=== PATIENT | female | born 1935 | race Caucasian/White ===

== ENCOUNTER 2019-08-15 14:29 | Inpatient (IN) ==
[2019-08-15] MEDS ORDERED: SODIUM CHLORIDE 0.9% 1000ML 1,000 ML IV ONE (15:21)
--- NOTE | 2019-08-15 15:44 | XRay Report ---
XR chest 1V portable HISTORY: 83 years-old Female Chest Pain acute atypical chest pain COMPARISON: Chest radiograph 09/14/2016 TECHNIQUE: Portable AP view of the chest FINDINGS: Cardiac mediastinal and hilar silhouettes are within normal limits. Hiatal hernia. Calcified plaque o f the thoracic aortic arch. No pneumothorax, pleural effusion, focal airspace consolidation or overt pulmonary edema. Subtle subsegmental right basilar atelectasis/scarring. Mild hyperinflation. Calcifi ed granuloma of the right lung apex, unchanged. Degenerative changes of the shoulders and spine. IMPRESSION: No acute process. The above report was generated using voice recognition software. It may contain grammatical, syntax o r spelling errors. Electronically signed by: Juan Chavez M.D. 08/15/2019 3:43 PM
[2019-08-15 16:07] LABS: Basophils # (auto) 0.08 K/uL (0-0.2); Basophils % (auto) 1.1 %; Eosinophils # (auto) 0.09 K/uL (0-0.5); Eosinophils % (auto) 1.2 %; Hematocrit (blood only) 40.7 % (37-47); Immature Granulocytes # (auto) 0.03 K/uL (0.00-0.02); Immature Granulocytes % (auto) 0.4 %; Lymphocytes % (auto) 17.7 %; Mean Corpuscular Hemoglobin 30.7 pg (25-34); Mean Corpuscular Hgb Conc 34.4 g/dL (32-36); Mean Corpuscular Volume 89.3 fL (80-100); Mean Platelet Volume 9.7 fL (7.4-10.4); Monocytes # (auto) 0.72 K/uL (0.11-0.59); Monocytes % (auto) 9.8 %; Neutrophils # (auto) 5.11 K/uL (1.4-6.5); Neutrophils % (auto) 69.8 %; Platelet Count 314 K/uL (130-400); RDW Coefficient of Variation 14.6 % (11.5-14.5); RDW Standard Deviation 47.7 fL (36.4-46.3); Red Blood Count 4.56 M/uL (4.2-5.4); White Blood Count 7.33 K/uL (4.8-10.8)
[2019-08-15 16:25] LABS: Alanine Aminotransferase 17 U/L (12-78); Albumin Level 3.7 gm/dl (3.4-5.0); Aspartate Aminotransferase 19 U/L (15-37); BUN Creatinine Ratio 28.3 (10-20); Blood Urea Nitrogen 68 mg/dl (7-18); Calcium 9.4 mg/dl (8.5-10.1); Carbon Dioxide 20 mmol/L (21-32); Chloride 100 mmol/L (98-107); Creatinine Clr Calc Pharmacy 16.7 ml/min; Est GFR (African American) 20.9; Glucose 102 mg/dl (70-99); Lipase 208 U/L (73-393); Magnesium 2.5 mg/dl (1.8-2.4); Sodium 131 mmol/L (136-145)
--- NOTE | 2019-08-15 16:33 | CT Scan Report ---
CT head/brain wo con CLINICAL HISTORY: 83 years-old Female presenting with confusion, weakness. TECHNIQUE: Multidetector CT imaging of the head was performed without the use of intravenous contrast . IV contrast: None. One or more dose lowering techniques were used consistent with the principles of ALARA (as low as reasonably achievable), including automatic exposure control, mA or kV adjustment t o individual patient size, and/or use of iterative reconstruction. COMPARISON: None. CT DOSE (mGy.cm): The estimated cumulative dose is 537.48 mGy.cm. 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 Proportional ventricular and sulcal prominence, likely age-related parenchymal volume loss. No hemorr jennifer. Periventricular and subcortical white matter hypoattenuation, nonspecific but likely indicative of chronic small vessel ischemic change. No acute territorial infarct. No mass effect or midline sly ft. No extra-axial fluid collection. Paranasal sinuses and mastoid air cells clear. Calvarium intact. IMPRESSION: 1. Chronic small vessel ischemic change. No acute intracranial abnormality. Electronically signed by: Robbin Fregoso M.D. 08/15/2019 4:32 PM
[2019-08-15 16:36] LABS: Albumin Globulin Ratio 0.8 (0.9-2); Alkaline Phosphatase 61 U/L (45-117); Bilirubin,Total 0.3 mg/dl (0.2-1); Globulin 4.8 gm/dl (2.5-4.0); Phosphorus 4.3 mg/dl (2.5-4.9); Total Protein 8.5 gm/dl (6.4-8.2); Troponin I < 0.015 ng/ml (0-0.045)
[2019-08-15 16:53] LABS: Appearance Urine Cloudy (Clear); Bacteria Urine Automated Negative (Negative); Bilirubin Urine Negative (Negative); Blood Urine Negative (Negative); Color Urine Yellow; Epithelial Cell Urine Auto 20-30 /lpf (0-5); Glucose Urine UA Negative (Negative); Ketones Urine Trace (Negative); Leukocyte Esterase Urine 3+ (Negative); Nitrite Urine Negative (Negative); Protein Urine Negative (Negative); RBC Urine Automated 0-4 /hpf (0-4); Specific Gravity Urine 1.021 (1.000-1.030); Urobilinogen Urine Negative (Negative); WBC Urine Automated >30 /hpf (0-5)
[2019-08-15] MEDS ORDERED: cefTRIAXone SODIUM 2,000 MG/70 ML BAG IV STA (17:28)
[2019-08-15] MEDS ORDERED: SODIUM CHLORIDE 0.9% 500 ML IV STA (17:50)
--- NOTE | 2019-08-15 18:41 | Emergency Department Note ---
Entered by Anjelica Kirkpatrick acting as a scribe for History of Present Illness General Chief complaint: Weakness Stated complaint: weakness Time Seen by Provider: 08/15/19 14:57 Source: patient and other (nursing staff) History of Present Illness Onset (ago): day(s) 10 Location: upper extremity and lower extremity Pain Consistency: + other (worsening) Quality: + other (weakness) Associated symptoms: + denies other symptoms (Pt denies any complaints) and + confusion The patient is an 83 year old female who presents to the Emergency Room with complaints of worsening weakness starting 10 days ago. Per nursing staff, the patient was diagnosed at [facility] with a UTI and started on Bactrim. They state that after 4 days she was taken off of it since she was having hallucinations. They report that according to what the daughter told EMS, the patient was not started on a new antibiotic. They note that since then the patient is reported to have increased confusion and weakness. They note that according to her family when EMS arrived, she is normally able to care for herself as she lives alone. They state that she is normally alert and oriented x4. The patient denies having any complaints. Home Medications Home Medications Medication Instructions Recorded Confirmed Type albuterol sulfate 2.5 mg INHALATION Q4 PRN 08/15/19 08/15/19 History aspirin [Aspir-81] 81 mg PO DAILY 08/15/19 08/15/19 History cholecalciferol (vitamin D3) 1,000 unit PO DAILY 08/15/19 08/15/19 History [Vitamin D3] cyanocobalamin (vitamin B-12) 1,000 mcg PO DAILY 08/15/19 08/15/19 History [Vitamin B-12] fluoxetine [Prozac] 20 mg PO DAILY 08/15/19 08/15/19 History folic acid 1 mg PO DAILY 08/15/19 08/15/19 History gabapentin [Neurontin] 600 mg PO QID 08/15/19 08/15/19 History hydrocortisone 1 applic TOPICAL TID PRN 08/15/19 08/15/19 History lansoprazole [Prevacid] 30 mg PO DAILY 08/15/19 08/15/19 History latanoprost [Xalatan] 1 drp OPHTHALMIC (EYE) HS 08/15/19 08/15/19 History losartan [Cozaar] 100 mg PO DAILY 08/15/19 08/15/19 History metoprolol succinate [Toprol XL] 50 mg PO DAILY 08/15/19 08/15/19 History nitroglycerin [Nitrostat] 0.4 mg SUBLINGUAL UD PRN 08/15/19 08/15/19 History oxycodone-acetaminophen [Percocet] 1 tab PO .Q6-8 HRS PRN 08/15/19 08/15/19 History peg 400-propylene glycol (PF) 1 drp OPHTHALMIC (EYE) BID PRN 08/15/19 08/15/19 History [Systane (PF)] Allergies Allergy/AdvReac Type Severity Reaction Status Date / Time chlorpromazine Allergy Unknown "OPPOSITE Unverified 08/15/19 15:35 EFFECT OF WHAT IT WAS SUPPOSED TO DO" morphine Allergy Unknown unknown Unverified 08/15/19 15:35 sulfamethoxazole AdvReac Severe Hallucinati Verified 08/15/19 17:28 [From Bactrim] ng trimethoprim [From Bactrim] AdvReac Severe Hallucinati Verified 08/15/19 17:28 ng atenolol AdvReac Intermediate Nausea Verified 08/15/19 15:40 citalopram AdvReac Intermediate NAUSEA,SARAH, Verified 08/15/19 15:40 AGITATION diclofenac AdvReac Intermediate Nausea Verified 08/15/19 15:40 simvastatin AdvReac Intermediate Muscle Pain Verified 08/15/19 15:40 pantoprazole AdvReac Diarrhea Verified 08/15/19 15:40 Past Med/Surg History Medical History Chronic back pain CKD (chronic kidney disease), stage III (Chronic) Coronary artery disease (Chronic) Depression (Chronic) Dyslipidemia (Chronic) GERD (gastroesophageal reflux disease) (Chronic) History of malignant melanoma (Chronic) HTN (hypertension) (Chronic) IBS (irritable bowel syndrome) (Chronic) Ischemic cardiomyopathy (Chronic) Osteoporosis (Chronic) Surgical History History of hysterectomy (Chronic) History of spinal fusion (Chronic) S/P bilateral oophorectomy (Chronic) S/P lumbar laminectomy (Chronic) Status post coronary artery stent placement (Chronic) Status post dilation of esophageal narrowing (Chronic) Family History Mother Diabetes Hypertension Social History Preferred Language: Maltese Communication Ability: Effective 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 and A total of 10 systems reviewed and were otherwise negative Physical Exam Vital Signs Vital Signs - 24 hr 08/15/19 14:34 08/15/19 14:37 08/15/19 14:41 Temperature 36.5 C Temperature Source Oral Pulse Rate 83 85 83 Pulse Rate [Finger] Pulse Rate from SpO2 Sensor 82 83 Respiratory Rate 14 15 14 Blood Pressure 131/76 131/76 Blood Pressure [Right Arm] Blood Pressure Mean 87 94 Blood Pressure Mean [Right Arm] Pulse Oximetry 93 94 93 Oxygen Delivery Method Room Air Sepsis Recent Fever Within 48 Hours No Sepsis Action Taken by Nursing No Action Required 08/15/19 15:00 08/15/19 15:30 08/15/19 15:56 Temperature Temperature Source Pulse Rate 83 82 79 Pulse Rate [Finger] 81 Pulse Rate from SpO2 Sensor 84 82 79 Respiratory Rate 15 13 18 Blood Pressure 138/76 Blood Pressure [Right Arm] 138/76 Blood Pressure Mean 97 Blood Pressure Mean [Right Arm] 96 Pulse Oximetry 93 92 93 Oxygen Delivery Method Room Air Sepsis Recent Fever Within 48 Hours Sepsis Action Taken by Nursing 08/15/19 16:00 08/15/19 16:39 08/15/19 16:40 Temperature Temperature Source Pulse Rate 76 85 75 Pulse Rate [Finger] Pulse Rate from SpO2 Sensor 76 Respiratory Rate 21 20 15 Blood Pressure 139/76 158/79 H Blood Pressure [Right Arm] Blood Pressure Mean 89 117 Blood Pressure Mean [Right Arm] Pulse Oximetry 94 Oxygen Delivery Method Sepsis Recent Fever Within 48 Hours Sepsis Action Taken by Nursing 08/15/19 16:41 08/15/19 17:00 08/15/19 17:30 Temperature Temperature Source Pulse Rate 86 78 79 Pulse Rate [Finger] Pulse Rate from SpO2 Sensor Respiratory Rate 17 20 13 Blood Pressure 137/63 128/68 Blood Pressure [Right Arm] Blood Pressure Mean 76 89 Blood Pressure Mean [Right Arm] Pulse Oximetry Oxygen Delivery Method Sepsis Recent Fever Within 48 Hours Sepsis Action Taken by Nursing 08/15/19 18:00 Temperature Temperature Source Pulse Rate 81 Pulse Rate [Finger] Pulse Rate from SpO2 Sensor Respiratory Rate 19 Blood Pressure 156/76 H Blood Pressure [Right Arm] Blood Pressure Mean 104 Blood Pressure Mean [Right Arm] Pulse Oximetry Oxygen Delivery Method Sepsis Recent Fever Within 48 Hours Sepsis Action Taken by Nursing GENERAL: Awake, alert, pleasantly confused, in no distress HENT: Normocephalic, atraumatic. Oropharynx with dry mucous membranes and otherwise unremarkable. EYES: Normal conjunctiva. Sclera non-icteric. NECK: Supple. No nuchal rigidity. FROM. No JVD. RESPIRATORY: Clear to auscultation bilaterally. CARDIAC: Regular rate, normal rhythm. Extremities warm and well perfused. Pulses equal. ABDOMEN: Soft, non-distended. No tenderness to palpation. No rebound or guarding. No masses. RECTAL: Deferred. MUSCULOSKELETAL: Chest examination reveals no tenderness. The back is symmetrical on inspection without obvious abnormality. There is no CVA tenderness to palpation. No joint edema. LOWER EXTREMITIES: Calves are equal size bilaterally and non-tender. No edema. No discoloration. NEURO: Pleasantly confused. No sensory or motor deficits noted. 5/5 strength and SILT x4 extremities. SKIN: No rash or jaundice noted. Course Course 151: The patient was evaluated in room B11B. A complete history and physical exam was performed. 1720: I reevaluated the patient and she is feeling better. I discussed the patient's test results and the treatment plan with her and her family. They verbally agree and understand. 1728: I discussed the patient's case with MONO Lerma- [facility]. She will evaluate the patient for further management. Administered Medications Gabapentin (Neurontin) 600 mg PO QID [facility] Stop: 09/14/19 20:59 Last Admin: 08/15/19 21:20 Dose: 600 mg Documented by: [id number] Heparin Sodium (Porcine) (Heparin Sodium (Porcine)) 5,000 units SQ Q8 [facility] Stop: 09/14/19 21:59 Last Admin: 08/15/19 21:19 Dose: 5,000 units Documented by: [id number] Cosigned by: [id number] Sodium Chloride (Nss 1000ml) 1,000 mls @ 100 mls/hr IV .Q10H [facility] Stop: 09/14/19 20:00 Last Admin: 08/15/19 21:01 Dose: 100 mls/hr Documented by: [id number] Latanoprost (Xalatan Oph) 1 drops OP HS [facility] Stop: 09/14/19 20:59 Last Admin: 08/15/19 21:20 Dose: 1 drops Documented by: [id number] Oxycodone/Acetaminophen (Percocet 10/325mg) 1 tab PO .Q6-8 HRS PRN PRN Reason: Pain Stop: 08/29/19 20:00 Last Admin: 08/15/19 21:00 Dose: 1 tab Documented by: [id number] Discontinued Medications Sodium Chloride (Nss 1000ml) 1,000 mls @ 999 mls/hr IV .Q1H1M ONE Stop: 08/15/19 16:21 Last Infusion: 08/15/19 16:50 Dose: 0 mls/hr Documented by: [id number] Admin: 08/15/19 15:55 Dose: 999 mls/hr Documented by: [id number] Ceftriaxone Sodium (Rocephin) 2,000 mg in 70 mls @ 140 mls/hr IV NOW STA Stop: 08/15/19 17:57 Last Infusion: 08/15/19 18:49 Dose: 0 mls/hr Documented by: [id number] Admin: 08/15/19 18:26 Dose: 140 mls/hr Documented by: [id number] Sodium Chloride (Nss) 500 mls @ 125 mls/hr IV .Q4H STA Stop: 08/15/19 21:49 Last Admin: 08/15/19 18:43 Dose: 125 mls/hr Documented by: [id number] Medical Decision Making Differential Diagnosis Differential Diagnosis includes but is not limited to dehydration, stroke, anemia, hypoglycemia, hyponatremia, hypernatremia, urinary tract infection, pneumonia, bronchitis, sepsis, gastroenteritis, additional abdominal pathology, metabolic abnormalities and infections. Medical Records Attestation: I reviewed the patient's medical records. Home Medications Current Medication List: was personally reviewed by me Laboratory Data Attestation: I reviewed the patient's lab results. Result diagrams: 08/15/19 15:42 08/15/19 15:42 Lab Results 08/15/19 08/15/19 08/15/19 Range/Units 15:42 15:42 16:40 WBC 7.33 (4.8-10.8) K/uL RBC 4.56 (4.2-5.4) M/uL Hgb 14.0 (12.0-16.0) g/dL Hct 40.7 (37-47) % MCV 89.3 (80-100) fL MCH 30.7 (25-34) pg MCHC 34.4 (32-36) g/dL RDW Std Deviation 47.7 H (36.4-46.3) fL RDW Coeff of Erin 14.6 H (11.5-14.5) % Plt Count 314 (130-400) K/uL MPV 9.7 (7.4-10.4) fL Immature Gran % (Auto) 0.4 % Neut % (Auto) 69.8 % Lymph % (Auto) 17.7 % [place] % (Auto) 9.8 % Eos % (Auto) 1.2 % Baso % (Auto) 1.1 % Immature Gran # (Auto) 0.03 H (0.00-0.02) K/uL Neut # (Auto) 5.11 (1.4-6.5) K/uL Lymph # (Auto) 1.30 (1.2-3.4) K/uL [place] # (Auto) 0.72 H (0.11-0.59) K/uL Eos # (Auto) 0.09 (0-0.5) K/uL Baso # (Auto) 0.08 (0-0.2) K/uL Sodium 131 L (136-145) mmol/L Potassium 5.0 (3.5-5.1) mmol/L Chloride 100 (98-107) mmol/L Carbon Dioxide 20 L (21-32) mmol/L Anion Gap 11.0 (3-11) BUN 68 H (7-18) mg/dl Creatinine 2.39 H (0.6-1.2) mg/dl Est Cr Clr Drug Dosing 16.7 ml/min Est GFR ( Amer) 20.9 Est GFR (Non-Af Amer) 18.0 BUN/Creatinine Ratio 28.3 H (10-20) Glucose 102 H (70-99) mg/dl Calcium 9.4 (8.5-10.1) mg/dl Phosphorus 4.3 (2.5-4.9) mg/dl Magnesium 2.5 H (1.8-2.4) mg/dl Total Bilirubin 0.3 (0.2-1) mg/dl AST 19 (15-37) U/L ALT 17 (12-78) U/L Alkaline Phosphatase 61 (45-117) U/L Troponin I < 0.015 (0-0.045) ng/ml Total Protein 8.5 H (6.4-8.2) gm/dl Albumin 3.7 (3.4-5.0) gm/dl Globulin 4.8 H (2.5-4.0) gm/dl Albumin/Globulin Ratio 0.8 L (0.9-2) Lipase 208 (73-393) U/L TSH 6.540 H (0.300-4.500) uIu/ml Free T4 1.00 (0.8-1.6) ng/dl Urine Color Yellow Urine Appearance Cloudy A (Clear) Urine pH 5.0 (4.5-7.5) Ur Specific [place] 1.021 (1.000-1.030) Urine Protein Negative (Negative) Urine Glucose (UA) Negative (Negative) Urine Ketones Trace H (Negative) Urine Blood Negative (Negative) Urine Nitrite Negative (Negative) Urine Bilirubin Negative (Negative) Urine Urobilinogen Negative (Negative) Ur Leukocyte Esterase 3+ H (Negative) Urine WBC (Auto) >30 H (0-5) /hpf Urine RBC (Auto) 0-4 (0-4) /hpf U Hyaline Cast (Auto) 5-10 H (0-5) /lpf U Epithel Cells (Auto) 20-30 H (0-5) /lpf Urine Bacteria (Auto) Negative (Negative) Imaging Data Radiologist's Impression: Radiology results as stated below per my review and the radiologist's interpretation: XR chest 1V portable HISTORY: 83 years-old Female Chest Pain acute atypical chest pain COMPARISON: Chest radiograph 09/14/2016 TECHNIQUE: Portable AP view of the chest FINDINGS: Cardiac mediastinal and hilar silhouettes are within normal limits. Hiatal hernia. Calcified plaque of the thoracic aortic arch. No pneumothorax, pleural effusion, focal airspace consolidation or overt pulmonary edema. Subtle subsegmental right basilar atelectasis/scarring. Mild hyperinflation. Calcified granuloma of the right lung apex, unchanged. Degenerative changes of the shoulders and spine. IMPRESSION: No acute process. The above report was generated using voice recognition software. It may contain grammatical, syntax or spelling errors. Electronically signed by: Juan Chavez M.D. 08/15/2019 3:[address] head/brain wo con CLINICAL HISTORY: 83 years-old Female presenting with confusion, weakness. TECHNIQUE: Multidetector CT imaging of the head was performed without the use of intravenous contrast. IV contrast: None. One or more dose lowering techniques were used consistent with the principles of ALARA (as low as reasonably achievable), including automatic exposure control, mA or kV adjustment to individual patient size, and/or use of iterative reconstruction. COMPARISON: None. CT DOSE (mGy.cm): The estimated cumulative dose is 537.48 mGy.cm. 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 Proportional ventricular and sulcal prominence, likely age-related parenchymal volume loss. No hemorrhage. Periventricular and subcortical white matter hypoattenuation, nonspecific but likely indicative of chronic small vessel ischemic change. No acute territorial infarct. No mass effect or midline shift. No extra-axial fluid collection. Paranasal sinuses and mastoid air cells clear. Calvarium intact. IMPRESSION: 1. Chronic small vessel ischemic change. No acute intracranial abnormality. Electronically signed by: Robbin Fregoso M.D. 08/15/2019 4:32 PM ECG Data Attestation: I personally reviewed and interpreted this ECG as follows: Indication: + weakness Rate (beats per minute): 78 Rhythm: + normal sinus ECG Intervals/blocks: + Left anterior fascicular block ECG ST segments: no ST depression and no ST elevation ECG Findings: + Other (LVH, QT-c 428, QRS 98) Blood Pressure Blood Pressure Findings: Elevated blood pressure Blood Pressure Disposition: further management by hospitalist SHEREE De La Torre The patient is a pleasant 83-year-old woman with a past medical history of CKD who presents emergency department for worsening confusion and generalized weakness in setting of being diagnosed with a urinary tract infection at [place] emergency department last week per hpi. On arrival patient is mildly confused but no acute distress, afebrile stable vital signs. The patient appears cl inically dry. She is moving all extremities equally without focal neuro deficits. EKG without overt acute ischemia. Chest x-ray negative for acute process. CT head negative for acute process and otherwise shows small vessel disease. WBC, H/H, and platelets within normal limits. Bicarb 20 c/w patient's clinicaly dry appearance with creatinine elevated at 2.39 which is increased from the patient's recent baseline of 1.2-1.4 over the past year in the [facility]. LFTs unremarkable. UA again is suspicious for infection in the setting of likely incomplete treatment given the family discontinued her Bactrim several days ago. Patient feeling improved after IVF hydration. However, given t he patient's mental status changes in the setting of acute on chronic renal insufficiency and UTI reasonable to admit the patient for further management. The patient and family are agreeable with this. Case was discussed with Henok Lerma, who will evaluate the patient for admission. Impression & Plan Renal failure (ARF), acute on chronic, UTI (urinary tract infection), Change in mental status, Confusion Discharge Plan Visit Data *Final* Discharge Date/Time: 08/15/19 19:46 Chief Complaint: Weakness Stated Complaint: weakness ED Provider: Dwayne Garcia Discharge Problem: Renal failure (ARF), acute on chronic, UTI (urinary tract infection), Change in mental status, Confusion Patient Disposition: Admitted As Inpatient Discharge Instructions Interventions: ED Discharge Assessment Last Done: 08/15/19 19:46 The scribe's documentation has been prepared under my direction and personally reviewed by me in its entirety. I confirm that the note above accurately reflects all work, treatment, procedures, and medical decision making performed by me.
[2019-08-15] MEDS ORDERED: ACETAMINOPHEN 325 MG TAB PO PRN (20:01)
--- NOTE | 2019-08-15 20:11 | History & Physical Report ---
Date of Service August 15, 2019 Assessment & Plan (1) Acute kidney injury superimposed on CKD: (2) CKD (chronic kidney disease), stage III: -Admit to [facility] -Patient presenting from home with reports of left lower quadrant abdominal pain and confusion -Was evaluated at [facility] ED on 08/05, diagnosed with UTI, and placed on Bactrim; also had CT ABD/pelvis that demonstrated renal cysts and bilateral nonobstructing renal calculi -Patient began to hallucinate after starting the Bactrim and it was stopped after 2 days of therapy -Suspect ALEXEI is multifactorial secondary to Bactrim in combination with poor p.o. intake and use of losartan -Confusion has seemed to resolve while in the ED after IVF -Continue IVF -Hold losartan -Follow renal functions (3) Abdominal pain: -Patient was reporting LLQ abdominal pain -Now resolved since arriving in the ED -CT ABD/pelvis on 08/05 at [facility] negative for acute findings -Continue to monitor, consider repeat CT scan if pain returns (4) Possible urinary tract infection: -UA suggest possible UTI -Received IV ceftriaxone in the ED, will continue with -Follow urine culture -Noted urine culture from 08/05 at [facility] showed no growth (5) Ischemic cardiomyopathy: -EF 40 to 45% -Does not utilize routine diuretics at home -Monitor volume status closely -Continue beta-yuliya; holding ARB as above (6) Coronary artery disease: -Appears stable, no reports chest pain -Continue aspirin and beta-yuliya (7) HTN (hypertension): -BP controlled, continue metoprolol -Holding losartan as above (8) Chronic back pain: -Continue home medications (9) DVT prophylaxis: -SQ heparin (10) Discharge planning issues: -PT/OT, case management evaluations -Patient's POA is Nohemy Mejía, History of Present Illness . Chief Complaint: Abdominal pain, altered mental status Primary Care Provider: Corinna Worthy MD 83-year-old female who presents the ED for evaluation of abdominal pain and altered mental status. Patient was evaluated at [facility] ED on 08/05 and diagnosed with UTI. Also underwent CT ABD/pelvis that demonstrated a few small nonobstructive bilateral renal calculi. Patient was given Bactrim for suspected UTI. About 2 days after starting that medication, patient developed hallucinations. This was discussed with the pharmacist who recommended discontinuing the medication. Since that time, patient has had persistent left lower quadrant abdominal pain. She has had a very poor appetite. Patient denies nausea and vomiting. No diarrhea. She denies any urinary frequency or dysuria. No fevers or chills. She denies chest pain shortness of breath. No lightheadedness, dizziness, diaphoresis, syncopal events. Patient's POA is at the bedside who reports the patient was very confused today. EMS was called and patient was brought to the ER for further evaluation. In the ED, patient was found to have creatinine of 2.3 (baseline ~1.4), mild hyponatremia Na+ 131, other labs unremarkable. UA suggest possible UTI. Head CT and CXR are negative for acute findings. Patient was given IVF and IV ceftriaxone. Patient reports resolution of abdominal pain since arriving in the ER Allergies Allergy/AdvReac Type Severity Reaction Status Date / Time chlorpromazine Allergy Unknown "OPPOSITE Unverified 08/15/19 15:35 EFFECT OF WHAT IT WAS SUPPOSED TO DO" morphine Allergy Unknown unknown Unverified 08/15/19 15:35 sulfamethoxazole AdvReac Severe Hallucinati Verified 08/15/19 17:28 [From Bactrim] ng trimethoprim [From Bactrim] AdvReac Severe Hallucinati Verified 08/15/19 17:28 ng atenolol AdvReac Intermediate Nausea Verified 08/15/19 15:40 citalopram AdvReac Intermediate NAUSEA,SARAH, Verified 08/15/19 15:40 AGITATION diclofenac AdvReac Intermediate Nausea Verified 08/15/19 15:40 simvastatin AdvReac Intermediate Muscle Pain Verified 08/15/19 15:40 pantoprazole AdvReac Diarrhea Verified 08/15/19 15:40 Home Medications Home Medications Medication Instructions Recorded Confirmed Type albuterol sulfate 2.5 mg INHALATION Q4 PRN 08/15/19 08/15/19 History aspirin [Aspir-81] 81 mg PO DAILY 08/15/19 08/15/19 History cholecalciferol (vitamin D3) 1,000 unit PO DAILY 08/15/19 08/15/19 History [Vitamin D3] cyanocobalamin (vitamin B-12) 1,000 mcg PO DAILY 08/15/19 08/15/19 History [Vitamin B-12] fluoxetine [Prozac] 20 mg PO DAILY 08/15/19 08/15/19 History folic acid 1 mg PO DAILY 08/15/19 08/15/19 History gabapentin [Neurontin] 600 mg PO QID 08/15/19 08/15/19 History hydrocortisone 1 applic TOPICAL TID PRN 08/15/19 08/15/19 History lansoprazole [Prevacid] 30 mg PO DAILY 08/15/19 08/15/19 History latanoprost [Xalatan] 1 drp OPHTHALMIC (EYE) HS 08/15/19 08/15/19 History losartan [Cozaar] 100 mg PO DAILY 08/15/19 08/15/19 History metoprolol succinate [Toprol XL] 50 mg PO DAILY 08/15/19 08/15/19 History nitroglycerin [Nitrostat] 0.4 mg SUBLINGUAL UD PRN 08/15/19 08/15/19 History oxycodone-acetaminophen [Percocet] 1 tab PO .Q6-8 HRS PRN 08/15/19 08/15/19 History peg 400-propylene glycol (PF) 1 drp OPHTHALMIC (EYE) BID PRN 08/15/19 08/15/19 History [Systane (PF)] Past Med/Surg History Medical History (Updated 08/15/19 @ 20:22 by MONO Lerma) Chronic back pain CKD (chronic kidney disease), stage III (Chronic) Coronary artery disease (Chronic) Depression (Chronic) Dyslipidemia (Chronic) GERD (gastroesophageal reflux disease) (Chronic) History of malignant melanoma (Chronic) HTN (hypertension) (Chronic) IBS (irritable bowel syndrome) (Chronic) Ischemic cardiomyopathy (Chronic) Osteoporosis (Chronic) Surgical History History of hysterectomy (Chronic) History of spinal fusion (Chronic) S/P bilateral oophorectomy (Chronic) S/P lumbar laminectomy (Chronic) Status post coronary artery stent placement (Chronic) Status post dilation of esophageal narrowing (Chronic) Family History Mother Diabetes Hypertension Social History Preferred Language: Afghan Communication Ability: Effective Batch Maker Required: No Beliefs That Will Affect Care: None marital status: / Current 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 occupational status: 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 Other Information That Helps Us Care for You: No Feels Safe at Home: Yes Safety Concerns: Feels Safe At This Time Smoking Status: Never smoker Do You Dip or Chew Tobacco: No ; Second Hand Exposure: No ; Tobacco Cessation Education Requested by Patient: No Hx Alcohol Use: No Hx Substance Use: No Review of Systems Review of Systems: ROS per HPI, all other systems reviewed and negative Physical Exam Constitutional: WD/WN, vitals as above Eyes: PERRL, conjunctivae normal, anicteric sclerae ENMT: Ears: no external ear abnormality Nose: no external nose abnormality Mouth: + edentulous Respiratory: normal respiratory effort, lungs clear to auscultation Cardiovascular: Rate/Rhythm: regular rate and regular rhythm Vessels: normal peripheral pulses Extremities: no edema Gastrointestinal (Abdomen): normal bowel sounds, soft, nontender, no hepatosplenomegaly Musculoskeletal: no cyanosis or clubbing, extremities motor strength 5/5 Skin: no rashes, warm and dry Neurologic: PERRL, EOMI, accommodation nl, no face palsy, no dysarthria Psychiatric: A+Ox3, euthymic affect Results & Data Vital Signs (Past 12 Hours) Vital Signs Temp Pulse Pulse Resp BP BP Pulse Ox 08/15/19 19:46 83 15 115/62 94 08/15/19 18:00 81 19 156/76 H 08/15/19 17:30 79 13 128/68 08/15/19 17:00 78 20 137/63 08/15/19 16:41 86 17 08/15/19 16:40 75 15 158/79 H 08/15/19 16:39 85 20 08/15/19 16:00 76 21 139/76 94 08/15/19 15:56 79 81 18 138/76 138/76 93 08/15/19 15:30 82 13 92 08/15/19 15:00 83 15 93 08/15/19 14:41 83 14 93 08/15/19 14:37 36.5 C 85 15 131/76 94 08/15/19 14:34 83 14 131/76 93 Laboratory Results Short CBC 08/15/19 Range/Units 15:42 WBC 7.33 (4.8-10.8) K/uL Hgb 14.0 (12.0-16.0) g/dL Hct 40.7 (37-47) % Plt Count 314 (130-400) K/uL BMP 08/15/19 15:42 Sodium 131 L Potassium 5.0 Chloride 100 Carbon Dioxide 20 L BUN 68 H Creatinine 2.39 H Glucose 102 H Calcium 9.4 Cardiac Enzymes 08/15/19 Range/Units 15:42 Troponin I < 0.015 (0-0.045) ng/ml Liver Function 08/15/19 Range/Units 15:42 Total Bilirubin 0.3 (0.2-1) mg/dl AST 19 (15-37) U/L ALT 17 (12-78) U/L Alkaline Phosphatase 61 (45-117) U/L Albumin 3.7 (3.4-5.0) gm/dl Urine 08/15/19 Range/Units 16:40 Urine Color Yellow Urine Appearance Cloudy A (Clear) Urine pH 5.0 (4.5-7.5) Ur Specific [place] 1.021 (1.000-1.030) Urine Protein Negative (Negative) Urine Glucose (UA) Negative (Negative) Diagnostic Findings HEAD CT IMPRESSION: 1. Chronic small vessel ischemic change. No acute intracranial abnormality. CXR IMPRESSION: No acute process. Code Status & VTE Plan Code Status Patient is a full code as per my discussion with her. VTE Prophylaxis Plan VTE Prophylaxis will be ordered: Yes Supervising Physician Co-Signing Physician Notes Attending addendum The patient was seen and examined in the emergency room She has been complaining of increasing weakness and tiredness for the last few days She was given Bactrim for possible UTI from [place] emergency room She has noted to have acute kidney injury which is possibly the cause for her weakness and likely due to use of Bactrim She has not been eating or drinking enough fluid On examination Lying in bed comfortably Hemodynamically stable with blood pressure on the upper range Chest-clear to auscultate bilaterally Heart-S1-S2, regular Abdomen-soft, nontender, bowel sounds present Extremities-no edema CAUL [employer] P[employer]ER -alert, awake and oriented x3. Generally weak Admission labs and imaging studies reviewed Has ALEXEI likely secondary to use of Bactrim and poor oral intake Agree with assessment and plan as outlined above by Ilana Maurice
[2019-08-15] MEDS: OXYCODONE/ACETAMINOPHEN 10-325 TAB PO PRN (21:00)
[2019-08-15] MEDS: SODIUM CHLORIDE 0.9% 1000ML 1,000 ML IV SCH (21:01)
[2019-08-15] MEDS: HEPARIN SOD 5,000 UNIT/0.5 ML VIAL SQ SCH (21:19)
[2019-08-15] MEDS: LATANOPROST 0.005% OP SOLN 2.5 ML BTL OP SCH (21:20)
[2019-08-15] MEDS: GABAPENTIN 600 MG TAB PO SCH (21:20)
[2019-08-16 06:05] LABS: Hematocrit (blood only) 33.4 % (37-47); Hemoglobin 11.1 g/dL (12.0-16.0); Mean Corpuscular Hgb Conc 33.2 g/dL (32-36); Mean Corpuscular Volume 90.3 fL (80-100); Mean Platelet Volume 10.1 fL (7.4-10.4); Platelet Count 247 K/uL (130-400); RDW Coefficient of Variation 14.8 % (11.5-14.5); RDW Standard Deviation 48.5 fL (36.4-46.3); White Blood Count 4.98 K/uL (4.8-10.8)
[2019-08-16] MEDS: HEPARIN SOD 5,000 UNIT/0.5 ML VIAL SQ SCH ×3 (06:39→19:58)
[2019-08-16] MEDS: SODIUM CHLORIDE 0.9% 1000ML 1,000 ML IV SCH ×2 (06:39→15:30)
[2019-08-16 06:43] LABS: BUN Creatinine Ratio 34.9 (10-20); Calcium 8.5 mg/dl (8.5-10.1); Creatinine Clr Calc Pharmacy 21.4 ml/min; Est GFR (African American) 36.4; Est GFR (Non-African American) 31.4; Potassium 4.9 mmol/L (3.5-5.1)
[2019-08-16] MEDS: LANSOPRAZOLE 30 MG SOLTAB NG SCH (08:34)
[2019-08-16] MEDS: ASPIRIN 81 MG ECTAB PO SCH (08:34)
[2019-08-16] MEDS: GABAPENTIN 600 MG TAB PO SCH ×4 (08:34→19:57)
[2019-08-16] MEDS: FLUOXETINE HCL 20 MG CAP PO SCH (08:34)
[2019-08-16] MEDS: METOPROLOL SUCC 50MG EXT REL TAB PO SCH (08:34)
[2019-08-16] MEDS: FOLIC ACID 1 MG TAB PO SCH (08:34)
[2019-08-16] MEDS: CHOLECALCIFEROL 1,000 UNITS TAB PO SCH (08:34)
[2019-08-16] MEDS: CYANOCOBALAMIN 500 MCG TABLET (VITAMIN B-12) PO SCH (08:34)
--- NOTE | 2019-08-16 16:29 | Hospitalist Progress Note ---
Date of Service August 16, 2019 Assessment & Plan (1) Acute kidney injury superimposed on CKD: (2) CKD (chronic kidney disease), stage III: ALEXEI on CKD III Likely secondary to Bactrim given for possible UTI prior to admission Cr: 2.39>> 1.51 Continue IV fluids Bactrim discontinued Avoid Nephrotoxic agents as able Hold losartan for now Confusion/Hallucinations Unclear etiology DD: Hyponatremia, renal failure, medications CT Head:Chronic small vessel ischemic change. No acute intracranial abnormality. Minimize narcotics as able Currently oriented Hyponatremia Sodium levels improved Continue IV fluids (3) Abdominal pain: Patient was reporting LLQ abdominal pain on presentation CT abdomen on 08/05 at [facility] showed renal stones and bilateral nonobstructing renal calculi Currently abdominal pain resolved Monitor (4) Possible urinary tract infection: Abnormal UA Urine culture from [facility] done on 08/05: No growth Urine Cx: pending Empirically on ceftriaxone (5) Ischemic cardiomyopathy: Last EF 40 to 45% Not on diuretics at home Monitor volume status Continue beta-yuliya; holding ARB due to ALEXEI (6) Coronary artery disease: Continue aspirin, Metoprolol (7) HTN (hypertension): BP stable continue metoprolol Holding losartan for now (8) Chronic back pain: Continue home medications (9) DVT prophylaxis: Heparin SQ (10) Discharge planning issues: PT/OT prior to discharge Patient's POA is Nohemy Mejía, Subjective Patient is seen and examined at bedside States feeling much better today Renal function improving Offers no complaints Denies any chest pain, shortness of breath, dizziness, abdominal pain, nausea, dysuria Review of Systems Review of Systems: All systems reviewed & are unremarkable except as noted in HPI & below Physical Exam Physical Exam: Physical Exam: Vitals signs as noted above General Appearance:Moderately built and nourished, no apparent distress, Elderly Head: normocephalic, Atraumatic Eyes: normal inspection, EOMI Neck: supple, Trachea midline Respiratory/Chest: Normal breath sounds, CTA Cardiovascular: S1, S2, No murmur Abdomen/GI:Soft, Non tender, Bowel sounds present Extremities/Musculoskelatal:normal inspection, no edema Neurologic/Psych:AAOX3, grossly no focal neurological deficits Skin: normal color, warm Results & Data Vital Signs (Past 12 Hours) Vital Signs Temp Pulse Resp BP Pulse Ox 08/16/19 14:58 37.3 C 72 19 116/73 95 08/16/19 07:15 36.9 C 86 18 114/70 93 Laboratory Results Short CBC 08/16/19 Range/Units 05:39 WBC 4.98 (4.8-10.8) K/uL Hgb 11.1 L (12.0-16.0) g/dL Hct 33.4 L (37-47) % Plt Count 247 (130-400) K/uL BMP 08/15/19 08/16/19 15:42 05:39 Sodium 131 L 135 L Potassium 5.0 4.9 Chloride 100 106 Carbon Dioxide 20 L 21 BUN 68 H 53 H Creatinine 2.39 H 1.51 H D Glucose 102 H 82 Calcium 9.4 8.5 Cardiac Enzymes 08/15/19 Range/Units 15:42 Troponin I < 0.015 (0-0.045) ng/ml Liver Function 08/15/19 Range/Units 15:42 Total Bilirubin 0.3 (0.2-1) mg/dl AST 19 (15-37) U/L ALT 17 (12-78) U/L Alkaline Phosphatase 61 (45-117) U/L Albumin 3.7 (3.4-5.0) gm/dl Urine 08/15/19 Range/Units 16:40 Urine Color Yellow Urine Appearance Cloudy A (Clear) Urine pH 5.0 (4.5-7.5) Ur Specific [place] 1.021 (1.000-1.030) Urine Protein Negative (Negative) Urine Glucose (UA) Negative (Negative)
[2019-08-16] MEDS: CEFTRIAXONE 1000 MG IV SCH (17:00)
[2019-08-16] MEDS: DEXTROSE 5% IV SCH (17:00)
[2019-08-16] MEDS: LATANOPROST 0.005% OP SOLN 2.5 ML BTL OP SCH (19:57)
[2019-08-17] MEDS: SODIUM CHLORIDE 0.9% 1000ML 1,000 ML IV SCH (01:54)
[2019-08-17] MEDS: HEPARIN SOD 5,000 UNIT/0.5 ML VIAL SQ SCH ×3 (05:57→22:13)
[2019-08-17 07:44] LABS: BUN Creatinine Ratio 31.8 (10-20); Calcium 8.8 mg/dl (8.5-10.1); Creatinine Clr Calc Pharmacy 37.5 ml/min; Est GFR (African American) 71.9; Magnesium 1.9 mg/dl (1.8-2.4); Potassium 4.7 mmol/L (3.5-5.1)
[2019-08-17] MEDS: FOLIC ACID 1 MG TAB PO SCH (08:55)
[2019-08-17] MEDS: FLUOXETINE HCL 20 MG CAP PO SCH (08:55)
[2019-08-17] MEDS: ASPIRIN 81 MG ECTAB PO SCH (08:55)
[2019-08-17] MEDS: METOPROLOL SUCC 50MG EXT REL TAB PO SCH (08:55)
[2019-08-17] MEDS: GABAPENTIN 600 MG TAB PO SCH ×4 (08:55→22:12)
[2019-08-17] MEDS: LANSOPRAZOLE 30 MG SOLTAB NG SCH (08:55)
[2019-08-17] MEDS: CHOLECALCIFEROL 1,000 UNITS TAB PO SCH (08:56)
[2019-08-17] MEDS: CYANOCOBALAMIN 500 MCG TABLET (VITAMIN B-12) PO SCH (08:56)
[2019-08-17] MEDS: OXYCODONE/ACETAMINOPHEN 10-325 TAB PO PRN ×3 (09:06→22:18)
[2019-08-17] MEDS: DEXTROSE 5% IV SCH (18:00)
[2019-08-17] MEDS: CEFTRIAXONE 1000 MG IV SCH (18:00)
--- NOTE | 2019-08-17 18:16 | Hospitalist Progress Note ---
Date of Service August 17, 2019 Assessment & Plan (1) Acute kidney injury superimposed on CKD: (2) CKD (chronic kidney disease), stage III: ALEXEI on CKD III Likely secondary to Bactrim given for possible UTI prior to admission Cr: 2.39>> 1.51>>0.86 Received IV fluids Bactrim discontinued Avoid Nephrotoxic agents as able Hold losartan for now Metabolic encephalopathy--Likely Multifactorial In setting of UTI, Hyponatremia, renal failure, medications CT Head:Chronic small vessel ischemic change. No acute intracranial abnormality. Minimize narcotics as able Mental status back to baseline Hyponatremia Sodium levels improved Received IV fluids (3) Abdominal pain: Patient was reporting LLQ abdominal pain on presentation CT abdomen on 08/05 at [facility] showed renal stones and bilateral nonobstructing renal calculi Currently abdominal pain resolved Monitor (4) Possible urinary tract infection: UTI-POA Urine culture from [facility] done on 08/05: No growth Urine Cx: Gram negative bacilli Continue IV ceftriaxone (5) Ischemic cardiomyopathy: Last EF 40 to 45% Not on diuretics at home Monitor volume status Continue beta-yuliya; holding ARB due to ALEXEI (6) Coronary artery disease: Continue aspirin, Metoprolol (7) HTN (hypertension): BP stable continue metoprolol Holding losartan for now (8) Chronic back pain: Continue home medications (9) DVT prophylaxis: Heparin SQ (10) Discharge planning issues: PT/OT prior to discharge Patient's POA is Nohemy Mejía, Subjective Patient is seen and examined at bedside No new complaints Reports chronic back pain Mental status seems to be back to baseline Urine culture growing gram-negative bacilli Denies any chest pain, SOB, dizziness, abdominal pain, nausea, dysuria Review of Systems Review of Systems: All systems reviewed & are unremarkable except as noted in HPI & below Physical Exam Physical Exam: Physical Exam: Vitals signs as noted above General Appearance:Moderately built and nourished, no apparent distress, Elderly Head: normocephalic, Atraumatic Eyes: normal inspection, EOMI Neck: supple, Trachea midline Respiratory/Chest: Normal breath sounds, CTA Cardiovascular: S1, S2, No murmur Abdomen/GI:Soft, Non tender, Bowel sounds present Extremities/Musculoskelatal:normal inspection, no edema Neurologic/Psych:AAOX3, grossly no focal neurological deficits Skin: normal color, warm Results & Data Vital Signs (Past 12 Hours) Vital Signs Temp Pulse Resp BP BP Pulse Ox 08/17/19 14:39 36.8 C 74 18 117/64 93 08/17/19 11:37 36.9 C 80 15 130/73 96 08/17/19 07:43 36.6 C 75 16 144/78 H 95 Laboratory Results BMP 08/17/19 06:53 Sodium 139 Potassium 4.7 Chloride 112 H Carbon Dioxide 20 L BUN 27 H Creatinine 0.86 D Glucose 82 Calcium 8.8
[2019-08-17] MEDS: LATANOPROST 0.005% OP SOLN 2.5 ML BTL OP SCH (22:12)
[2019-08-18] MEDS: HEPARIN SOD 5,000 UNIT/0.5 ML VIAL SQ SCH ×3 (05:42→21:10)
[2019-08-18 06:51] LABS: Hematocrit (blood only) 30.2 % (37-47); Hemoglobin 9.8 g/dL (12.0-16.0)
[2019-08-18 07:23] LABS: BUN Creatinine Ratio 23.4 (10-20); Calcium 8.7 mg/dl (8.5-10.1); Creatinine Clr Calc Pharmacy 31.1 ml/min; Est GFR (African American) 55.8; Est GFR (Non-African American) 48.2; Potassium 4.7 mmol/L (3.5-5.1)
[2019-08-18] MEDS: METOPROLOL SUCC 50MG EXT REL TAB PO SCH (07:48)
[2019-08-18] MEDS: FLUOXETINE HCL 20 MG CAP PO SCH (07:48)
[2019-08-18] MEDS: FOLIC ACID 1 MG TAB PO SCH (07:48)
[2019-08-18] MEDS: CHOLECALCIFEROL 1,000 UNITS TAB PO SCH (07:48)
[2019-08-18] MEDS: GABAPENTIN 600 MG TAB PO SCH ×4 (07:49→21:09)
[2019-08-18] MEDS: LANSOPRAZOLE 30 MG SOLTAB NG SCH (07:49)
[2019-08-18] MEDS: CYANOCOBALAMIN 500 MCG TABLET (VITAMIN B-12) PO SCH (07:50)
[2019-08-18] MEDS: ASPIRIN 81 MG ECTAB PO SCH (07:51)
[2019-08-18] MEDS: OXYCODONE/ACETAMINOPHEN 10-325 TAB PO PRN ×2 (13:22→21:09)
--- NOTE | 2019-08-18 17:11 | Hospitalist Progress Note ---
Date of Service August 18, 2019 Assessment & Plan (1) Acute kidney injury superimposed on CKD: (2) CKD (chronic kidney disease), stage III: ALEXEI on CKD III Likely secondary to Bactrim given for possible UTI prior to admission Cr: 2.39>> 1.51>>1.06 Received IV fluids Bactrim discontinued Avoid Nephrotoxic agents as able Hold losartan for now Metabolic encephalopathy--Likely Multifactorial In setting of UTI, Hyponatremia, renal failure, medications CT Head:Chronic small vessel ischemic change. No acute intracranial abnormality. Minimize narcotics as able Mental status back to baseline Hyponatremia Sodium levels improved Received IV fluids Resolved (3) Abdominal pain: Patient was reporting LLQ abdominal pain on presentation CT abdomen on 08/05 at [facility] showed renal stones and bilateral nonobstructing renal calculi Currently abdominal pain resolved Monitor (4) Possible urinary tract infection: UTI-POA Urine culture from [facility] done on 08/05: No growth Urine Cx: Gram negative bacilli Continue IV ceftriaxone (5) Ischemic cardiomyopathy: Last EF 40 to 45% Not on diuretics at home Monitor volume status Continue beta-yuliya; holding ARB due to ALEXEI (6) Coronary artery disease: Continue aspirin, Metoprolol (7) HTN (hypertension): BP stable continue metoprolol Holding losartan for now (8) Chronic back pain: Continue home medications (9) DVT prophylaxis: Heparin SQ (10) Discharge planning issues: Patient not interested in SNF placement Plan to discharge home with home health Patient's POA is Nohemy Mejía, Subjective Patient is seen and examined at bedside Doing well today Has chronic back pain Urine culture pending Denies any chest pain, SOB, dizziness, abdominal pain, nausea, dysuria No new complaints Review of Systems Review of Systems: All systems reviewed & are unremarkable except as noted in HPI & below Physical Exam Physical Exam: Physical Exam: Vitals signs as noted above General Appearance:Moderately built and nourished, no apparent distress, Elderly Head: normocephalic, Atraumatic Eyes: normal inspection, EOMI Neck: supple, Trachea midline Respiratory/Chest: Normal breath sounds, CTA Cardiovascular: S1, S2, No murmur Abdomen/GI:Soft, Non tender, Bowel sounds present Extremities/Musculoskelatal:normal inspection, no edema Neurologic/Psych:AAOX3, grossly no focal neurological deficits Skin: normal color, warm Results & Data Vital Signs (Past 12 Hours) Vital Signs Temp Pulse Resp BP BP Pulse Ox 08/18/19 15:53 36.9 C 86 19 127/64 91 08/18/19 07:01 36.3 C L 69 18 145/78 H 94 Laboratory Results Short CBC 08/18/19 Range/Units 06:24 Hgb 9.8 L (12.0-16.0) g/dL Hct 30.2 L (37-47) % BMP 08/18/19 06:24 Sodium 137 Potassium 4.7 Chloride 109 H Carbon Dioxide 23 BUN 25 H Creatinine 1.06 Glucose 88 Calcium 8.7
[2019-08-18] MEDS: CEFTRIAXONE 1000 MG IV SCH (18:10)
[2019-08-18] MEDS: DEXTROSE 5% IV SCH (18:10)
[2019-08-18] MEDS: LATANOPROST 0.005% OP SOLN 2.5 ML BTL OP SCH (21:10)
[2019-08-19 06:04] LABS: Hematocrit (blood only) 32.9 % (37-47); Hemoglobin 10.6 g/dL (12.0-16.0)
[2019-08-19] MEDS: HEPARIN SOD 5,000 UNIT/0.5 ML VIAL SQ SCH ×3 (06:28→22:00)
[2019-08-19] MEDS: OXYCODONE/ACETAMINOPHEN 10-325 TAB PO PRN ×3 (06:32→18:07)
[2019-08-19 06:34] LABS: Creatinine Clr Calc Pharmacy 33.3 ml/min; Est GFR (African American) 60.6; Est GFR (Non-African American) 52.3
[2019-08-19] MEDS: GABAPENTIN 600 MG TAB PO SCH ×4 (08:20→22:00)
[2019-08-19] MEDS: CYANOCOBALAMIN 500 MCG TABLET (VITAMIN B-12) PO SCH (08:20)
[2019-08-19] MEDS: FOLIC ACID 1 MG TAB PO SCH (08:20)
[2019-08-19] MEDS: FLUOXETINE HCL 20 MG CAP PO SCH (08:20)
[2019-08-19] MEDS: CHOLECALCIFEROL 1,000 UNITS TAB PO SCH (08:20)
[2019-08-19] MEDS: METOPROLOL SUCC 50MG EXT REL TAB PO SCH (08:20)
[2019-08-19] MEDS: LANSOPRAZOLE 30 MG SOLTAB NG SCH (08:20)
[2019-08-19] MEDS: ASPIRIN 81 MG ECTAB PO SCH (08:20)
--- NOTE | 2019-08-19 12:14 | XRay Report ---
SINGLE VIEW CHEST CLINICAL HISTORY: Cough. FINDINGS: An AP, portable, upright chest radiograph is compared to study dated 08/15/2019 an 08/12/20 16. The examination is degraded by portable technique and patient rotation. There is a moderate hiata l hernia. The heart is top normal for projection noting atherosclerotic calcification of the thoracic aorta. There is fullness of the poonam bilaterally. Chronic interstitial thickening is similar to prev ious. No airspace consolidation or large pleural effusion is identified. No pneumothorax is seen. The skeletal structures are osteopenic. The bony thorax is grossly intact. IMPRESSION: 1. No acute cardiopulmonary abnormality is identified. 2. Hiatal hernia. 3. There is fullness of the poonam bilaterally which is similar to prior studies and may represent dila caty pulmonary arteries/pulmonary artery hypertension. If there is concern for lymphadenopathy a contr ast-enhanced chest CT could be considered for further assessment. Electronically signed by: Abran Kim M.D. 08/19/2019 12:13 PM
[2019-08-19 13:12] LABS: Influenza A virus by PCR Neg for Influ A (Neg); Influenza B virus by PCR Neg for Influ B (Neg)
[2019-08-19] MEDS ORDERED: POLYETHYLENE (MIRALAX) 17 GM PACK PO PRN (15:23)
--- NOTE | 2019-08-19 17:29 | Hospitalist Progress Note ---
Date of Service August 19, 2019 Assessment & Plan (1) Acute kidney injury superimposed on CKD: (2) CKD (chronic kidney disease), stage III: ALEXEI on CKD III Likely secondary to Bactrim given for possible UTI prior to admission Cr: 2.39>> 1.51>>0.99 Received IV fluids Bactrim discontinued Avoid Nephrotoxic agents as able Hold losartan for now Constipation Started on bowel regimen Metabolic encephalopathy--Likely Multifactorial In setting of UTI, Hyponatremia, renal failure, medications CT Head:Chronic small vessel ischemic change. No acute intracranial abnormality. Minimize narcotics as able Mental status back to baseline Hyponatremia Sodium levels improved Received IV fluids Resolved (3) Abdominal pain: Patient was reporting LLQ abdominal pain on presentation CT abdomen on 08/05 at [facility] showed renal stones and bilateral nonobstructing renal calculi Currently abdominal pain resolved Monitor (4) Possible urinary tract infection: UTI-POA Urine culture from [facility] done on 08/05: No growth Urine Cx: Gram negative bacilli Continue IV ceftriaxone until Cx finalized (5) Ischemic cardiomyopathy: Last EF 40 to 45% Not on diuretics at home Monitor volume status Continue beta-yuliya; holding ARB due to ALEXEI (6) Coronary artery disease: Continue aspirin, Metoprolol (7) HTN (hypertension): BP stable continue metoprolol Holding losartan for now (8) Chronic back pain: Continue home medications (9) DVT prophylaxis: Heparin SQ (10) Discharge planning issues: Patient not interested in SNF placement Plan to discharge home with home health Patient's POA is Nohemy Mejía, Subjective Patient is seen and examined at bedside Reports dry cough, constipation Poorly slept overnight Has chronic back pain Urine culture still pending Denies any chest pain, SOB, dizziness, abdominal pain, nausea, dysuria Review of Systems Review of Systems: All systems reviewed & are unremarkable except as noted in HPI & below Physical Exam Physical Exam: Physical Exam: Vitals signs as noted above General Appearance:Moderately built and nourished, no apparent distress, Elderly Head: normocephalic, Atraumatic Eyes: normal inspection, EOMI Neck: supple, Trachea midline Respiratory/Chest: Normal breath sounds, CTA Cardiovascular: S1, S2, No murmur Abdomen/GI:Soft, Non tender, Bowel sounds present Extremities/Musculoskelatal:normal inspection, no edema Neurologic/Psych:AAOX3, grossly no focal neurological deficits Skin: normal color, warm Results & Data Vital Signs (Past 12 Hours) Vital Signs Temp Pulse Resp BP Pulse Ox 08/19/19 14:42 37.3 C 87 18 99/60 L 90 08/19/19 07:16 37.4 C 88 18 135/66 90 Laboratory Results Short CBC 08/19/19 Range/Units 05:25 Hgb 10.6 L (12.0-16.0) g/dL Hct 32.9 L (37-47) % BMP 08/19/19 05:25 Creatinine 0.99
[2019-08-19] MEDS: CEFTRIAXONE 1000 MG IV SCH (18:07)
[2019-08-19] MEDS: DEXTROSE 5% IV SCH (18:07)
[2019-08-19] MEDS: DOCUSATE SODIUM 100 MG CAP PO SCH (22:00)
[2019-08-19] MEDS: LATANOPROST 0.005% OP SOLN 2.5 ML BTL OP SCH (22:00)
[2019-08-19 23:24] VITALS: TEMP 98.2
[2019-08-20] MEDS: OXYCODONE/ACETAMINOPHEN 10-325 TAB PO PRN ×3 (00:42→15:04)
[2019-08-20] MEDS: HEPARIN SOD 5,000 UNIT/0.5 ML VIAL SQ SCH ×2 (06:12→13:48)
[2019-08-20 07:31] VITALS: PULSE 75; O2SAT 90
[2019-08-20] MEDS: ASPIRIN 81 MG ECTAB PO SCH (08:09)
[2019-08-20] MEDS: FOLIC ACID 1 MG TAB PO SCH (08:09)
[2019-08-20] MEDS: DOCUSATE SODIUM 100 MG CAP PO SCH (08:09)
[2019-08-20] MEDS: CHOLECALCIFEROL 1,000 UNITS TAB PO SCH (08:10)
[2019-08-20] MEDS: METOPROLOL SUCC 50MG EXT REL TAB PO SCH (08:10)
[2019-08-20] MEDS: LANSOPRAZOLE 30 MG SOLTAB NG SCH (08:10)
[2019-08-20] MEDS: GABAPENTIN 600 MG TAB PO SCH ×2 (08:10→13:48)
[2019-08-20] MEDS: FLUOXETINE HCL 20 MG CAP PO SCH (08:10)
[2019-08-20] MEDS: CYANOCOBALAMIN 500 MCG TABLET (VITAMIN B-12) PO SCH (08:10)
[2019-08-20] MEDS: DEXTROSE 5% IV SCH (10:05)
[2019-08-20] MEDS: CEFTRIAXONE 1000 MG IV SCH (10:05)
[2019-08-20] MEDS ORDERED: DOXYCYCLINE HYCLATE 100 MG CAP PO SCH (12:00)
--- NOTE | 2019-08-20 13:14 | Hospitalist Progress Note ---
Date of Service August 20, 2019 Assessment & Plan (1) Acute kidney injury superimposed on CKD: (2) CKD (chronic kidney disease), stage III: ALEXEI on CKD III Likely secondary to Bactrim given for possible UTI prior to admission Cr: 2.39>> 1.51>>0.99 Received IV fluids Bactrim discontinued Avoid Nephrotoxic agents as able Hold losartan for now Constipation Continue bowel regimen Metabolic encephalopathy--Likely Multifactorial In setting of UTI, Hyponatremia, renal failure, medications CT Head:Chronic small vessel ischemic change. No acute intracranial abnormality. Minimize narcotics as able Mental status back to baseline Cough Possible bronchitis CXR:No pneumonia Started on Doxycycline Hyponatremia Sodium levels improved Received IV fluids Resolved (3) Abdominal pain: Patient was reporting LLQ abdominal pain on presentation CT abdomen on 08/05 at [facility] showed renal stones and bilateral nonobstructing renal calculi Abdominal pain resolved Monitor (4) Possible urinary tract infection: UTI-POA Urine Cx: E.coli Completed 5 day course of IV ceftriaxone (5) Ischemic cardiomyopathy: Last EF 40 to 45% Not on diuretics at home Monitor volume status Continue beta-yuliya; holding ARB due to ALEXEI (6) Coronary artery disease: Continue aspirin, Metoprolol (7) HTN (hypertension): BP stable continue metoprolol Holding losartan for now (8) Chronic back pain: Continue home medications (9) DVT prophylaxis: Heparin SQ (10) Discharge planning issues: Patient not interested in SNF placement Plan to discharge home with home health Patient's POA is Nohemy Mejía, Subjective Patient is seen and examined at bedside States having cough with minimal expectoration Offers no other complaints Has chronic back pain Urine culture growing E. coli Denies any chest pain, SOB, dizziness, abdominal pain, nausea, dysuria Review of Systems Review of Systems: All systems reviewed & are unremarkable except as noted in HPI & below Physical Exam Physical Exam: Physical Exam: Vitals signs as noted above General Appearance:Moderately built and nourished, no apparent distress, Elderly Head: normocephalic, Atraumatic Eyes: normal inspection, EOMI Neck: supple, Trachea midline Respiratory/Chest: Normal breath sounds, CTA Cardiovascular: S1, S2, No murmur Abdomen/GI:Soft, Non tender, Bowel sounds present Extremities/Musculoskelatal:normal inspection, no edema Neurologic/Psych:AAOX3, grossly no focal neurological deficits Skin: normal color, warm Results & Data Vital Signs (Past 12 Hours) Vital Signs Temp Pulse Resp BP Pulse Ox 08/20/19 07:30 36.8 C 75 18 132/71 90
--- NOTE | 2019-08-20 13:18 | Discharge Summary ---
Date of Service August 20, 2019 Admission HPI Per Admitting Provider 83-year-old female who presents the ED for evaluation of abdominal pain and altered mental status. Patient was evaluated at [facility] ED on 08/05 and diagnosed with UTI. Also underwent CT ABD/pelvis that demonstrated a few small nonobstructive bilateral renal calculi. Patient was given Bactrim for suspected UTI. About 2 days after starting that medication, patient developed hallucinations. This was discussed with the pharmacist who recommended discontinuing the medication. Since that time, patient has had persistent left lower quadrant abdominal pain. She has had a very poor appetite. Patient den ies nausea and vomiting. No diarrhea. She denies any urinary frequency or dysuria. No fevers or chills. She denies chest pain shortness of breath. No lightheadedness, dizziness, diaphoresis, syncopal events. Patient's POA is at the bedside who reports the patient was very confused today. EMS was called and patient was brought to the ER for further evaluation. In the ED, patient was found to have creatinine of 2.3 (baseline ~1.4), mild hyponatremia Na+ 131, other labs unremarkable. UA suggest possible UTI. Head CT and CXR are negative for acute findings. Patient was given IVF and IV ceftriaxone. Patient reports resolution of abdominal pain since arriving in the ER Admission Exam Per Admitting Provider Physical Exam Constitutional: WD/WN, vitals as above Eyes: PERRL, conjunctivae normal, anicteric sclerae ENMT: Ears: no external ear abnormality Nose: no external nose abnormality Mouth: + edentulous Respiratory: normal respiratory effort, lungs clear to auscultation Cardiovascular: Rate/Rhythm: regular rate and regular rhythm Vessels: normal peripheral pulses Extremities: no edema Gastrointestinal (Abdomen): normal bowel sounds, soft, nontender, no hepatosplenomegaly Musculoskeletal: no cyanosis or clubbing, extremities motor strength 5/5 Skin: no rashes, warm and dry Neurologic: PERRL, EOMI, accommodation nl, no face palsy, no dysarthria Psychiatric: A+Ox3, euthymic affect Principal Diagnosis Acute kidney injury Metabolic encephalopathy Urinary tract infection Possible bronchitis Discharge Data Allergies Allergy/AdvReac Type Severity Reaction Status Date / Time chlorpromazine Allergy Unknown "OPPOSITE Unverified 08/15/19 15:35 EFFECT OF WHAT IT WAS SUPPOSED TO DO" morphine Allergy Unknown unknown Unverified 08/15/19 15:35 sulfamethoxazole AdvReac Severe Hallucinati Verified 08/15/19 17:28 [From Bactrim] ng trimethoprim [From Bactrim] AdvReac Severe Hallucinati Verified 08/15/19 17:28 ng atenolol AdvReac Intermediate Nausea Verified 08/15/19 15:40 citalopram AdvReac Intermediate NAUSEA,SARAH, Verified 08/15/19 15:40 AGITATION diclofenac AdvReac Intermediate Nausea Verified 08/15/19 15:40 simvastatin AdvReac Intermediate Muscle Pain Verified 08/15/19 15:40 pantoprazole AdvReac Diarrhea Verified 08/15/19 15:40 Consultations 08/15/19 17:29 ED Decision to Admit Stat 08/15/19 20:01 Consult Case Management - Discharge Planning Routine Procedures Performed CT Head:Chronic small vessel ischemic change. No acute intracranial abnormality. CXR: No acute cardiopulmonary abnormality is identified. Hiatal hernia. There is fullness of the poonam bilaterally which is similar to prior studies and may represent dilated pulmonary arteries/pulmonary artery hypertension. If there is concern for lymphadenopathy a contrast-enhanced chest CT could be considered for further assessment. Ordered Studies 08/15/19 15:21 CT head/brain wo con Stat Hospital Course (1) Acute kidney injury superimposed on CKD: (2) CKD (chronic kidney disease), stage III: ALEXEI on CKD III Likely secondary to Bactrim given for possible UTI prior to admission Cr: 2.39>> 1.51>>0.99 Received IV fluids Bactrim discontinued Avoid Nephrotoxic agents as able Hold losartan for now Constipation Continue bowel regimen Metabolic encephalopathy--Likely Multifactorial In setting of UTI, Hyponatremia, renal failure, medications CT Head:Chronic small vessel ischemic change. No acute intracranial abnormality. Minimize narcotics as able Mental status back to baseline Cough Possible bronchitis CXR:No pneumonia Started on Doxycycline Hyponatremia Sodium levels improved Received IV fluids Resolved (3) Abdominal pain: Patient was reporting LLQ abdominal pain on presentation CT abdomen on 08/05 at [facility] showed renal stones and bilateral nonobstructing renal calculi Abdominal pain resolved Monitor (4) Possible urinary tract infection: UTI-POA Urine Cx: E.coli Completed 5 day course of IV ceftriaxone (5) Ischemic cardiomyopathy: Last EF 40 to 45% Not on diuretics at home Monitor volume status Continue beta-yuliya; holding ARB due to ALEXEI (6) Coronary artery disease: Continue aspirin, Metoprolol (7) HTN (hypertension): BP stable continue metoprolol Holding losartan for now (8) Chronic back pain: Continue home medications (9) DVT prophylaxis: Heparin SQ (10) Discharge planning issues: Patient not interested in SNF placement Plan to discharge home with home health Patient's POA is Nohemy Mejía, Total Time Total Time Spent Total Time Spent (In Minutes): 36 minutes Total Time Includes: Examination of the Patient, Discharge Planning, Medication Reconciliation, Communication With Other Providers and Other Discharge Plan Discharge Items Patient Disposition: Home - Home Health Services Reason For Visit: ALEXEI,UTI Discharge Diagnosis: Acute kidney injury Metabolic encephalopathy Urinary tract infection Possible bronchitis Activity: Resume your previous activity Exercise/Sports: Gradually increase as tolerated Non-emergency contact: Primary Care Provider Call non-emergency contact if: you have any medication questions, your symptoms worsen, your pain is not controlled, your pain is worsening, your pain is unu sual for you, your pain is concerning for you and you have a fever Follow-up/Referrals: Corinna Worthy MD [Primary Care Provider] - Diet: Heart Healthy Diet Texture: Dental soft (bite-sized) Addtl Attending Provider Instructions: Follow-up with your primary care physician Dr. Worthy in 1 week as advised Complete the antibiotic (doxycycline )prescribed for possible bronchitis Seek immediate medical attention if your symptoms reoccur or worsen Pending Studies at Discharge: No Stand-Alone Forms: My [employer], Smoking Cessation Medications and DC Order Prescriptions: New doxycycline hyclate 100 mg Capsule 100 mg PO BID Qty: 6 RF: 0 polyethylene glycol 3350 [Miralax] 17 gram Powder In Packet 17 g PO DAILY PRN (Reason: constipation) Qty: 30 RF: 0 Continued latanoprost [Xalatan] 0.005 % drops 1 drp ophthalmic (eye) HS RF: 0 gabapentin [Neurontin] 600 mg tablet 600 mg PO QID RF: 0 albuterol sulfate 2.5 mg /3 mL (0.083 %) Solution For Nebulization 2.5 mg INHALATION Q4 PRN (Reason: Shortness Of Breath Or Wheezing) RF: 0 metoprolol succinate [Toprol XL] 50 mg tablet extended release 24 hr 50 mg PO DAILY RF: 0 cyanocobalamin (vitamin B-12) [Vitamin B-12] 1,000 mcg Tablet 1,000 mcg PO DAILY RF: 0 aspirin [Aspir-81] 81 mg tablet,delayed release (DR/EC) 81 mg PO DAILY RF: 0 hydrocortisone 2.5 % Lotion 1 applic TOPICAL TID PRN (Reason: Itching) RF: 0 oxycodone-acetaminophen [Percocet] 10-325 mg tablet 1 tab PO .Q6-8 HRS PRN (Reason: Pain) RF: 0 lansoprazole [Prevacid] 30 mg capsule,delayed release(DR/EC) 30 mg PO DAILY RF: 0 nitroglycerin [Nitrostat] 0.4 mg tablet, sublingual 0.4 mg sublingual UD PRN (Reason: Chest Pain) RF: 0 folic acid 1 mg Tablet 1 mg PO DAILY RF: 0 losartan [Cozaar] 100 mg tablet 100 mg PO DAILY RF: 0 fluoxetine [Prozac] 20 mg capsule 20 mg PO DAILY RF: 0 cholecalciferol (vitamin D3) [Vitamin D3] 1,000 unit Capsule 1,000 unit PO DAILY RF: 0 Systane (PF) 0.4-0.3 % Dropperette 1 drp OPHTHALMIC (EYE) BID PRN (Reason: Dry Eye(S)) RF: 0 Discharge Orders: Discharge Order (Routine); Ordered 08/20/19 Ordered By: Vasile Salter Admission Data Admit Date/Time: 08/15/19 18:32 Attending Provider: Vasile Salter Admit Provider: Abena Maurice Primary Care Provider: Corinna Worthy Other Providers: Abena Maurice ; [place] Other Interventions: Discharge Summary Assessment (RN) Last Done: 08/20/19 14:18 DC Date/Time DO NOT enter until pt leaves facility: 08/20/19 16:18
[2019-08-20 14:10] VITALS: BP 145/78
== END 2019-08-20 16:18 | disposition home health service (06) | DRG 682 ==
LOC: ED 14:29 → 4W 18:32 → SUATTDRO 18:32 → 4W 19:46

== ENCOUNTER 2021-02-11 11:05 | Observation (INO) ==
[2021-02-11 11:44] LABS: Basophils # (auto) 0.01 K/uL (0-0.2); Basophils % (auto) 0.3 %; Hemoglobin 10.9 g/dL (12.0-16.0); Immature Granulocytes # (auto) 0.01 K/uL (0.00-0.02); Immature Granulocytes % (auto) 0.3 %; Lymphocytes # (auto) 0.63 K/uL (1.2-3.4); Lymphocytes % (auto) 18.5 %; Mean Corpuscular Hemoglobin 26.9 pg (25-34); Mean Corpuscular Volume 81.5 fL (80-100); Mean Platelet Volume 9.8 fL (7.4-10.4); Monocytes # (auto) 0.78 K/uL (0.11-0.59); Monocytes % (auto) 22.9 %; Neutrophils # (auto) 1.97 K/uL (1.4-6.5); Platelet Count 169 K/uL (130-400); RDW Standard Deviation 45.4 fL (36.4-46.3); Red Blood Count 4.05 M/uL (4.2-5.4)
--- NOTE | 2021-02-11 11:44 | Emergency Department Note ---
Impression & Plan COVID-19, Hypoxia ED Provider Note INFORMANT: Patient ED PROVIDER(S): Don Rubio MD CHIEF COMPLAINT: Illness PLAN: Disposition: Admitted Condition: Good Outpatient prescription management: none Referral: None MEDICAL DECISION MAKING: Patient presented to [place] complaining of illness. She has some concern for urinary tract infection as well as Covid. A urinalysis was performed via catheter specimen and was negative. The patient had some mild nausea and was treated with Zofran. Laboratory testing was rather unremarkable. The patient did test positive for Covid. She was found to require supplemental oxygen and therefore was given IV Decadron. Patient did not have any significant infiltrates or abnormalities on chest x-ray. [facility] Patient was evaluated in ER admitted for further management. Triage Nursing notes reviewed and agree them. Vital Signs: reviewed and remarkable for mild hypoxia Differential diagnosis: Infection, dehydration, metabolic abnormality, hypo/hyperglycemia, electrolyte disturbance, anemia, hypoxia, cardiac sources, intracerebral event, toxicologic, neurologic, as well as other pathologies. Diagnostics interpreted by me: ECG: Twelve-lead ECG reveals normal sinus rhythm at 72 bpm. Left anterior fascicular block and LVH present. No ST elevation or depression. Cardiac Monitoring: Cardiac monitoring ordered by me: The patient was placed on continuous cardiac monitoring and observed. It revealed a normal sinus rhythm at 79 beats per minute without ectopy or evidence of dysrhythmia. Imaging studies: Chest x-ray. Findings: A chest x-ray was performed and revealed no pneumothorax, effusion, infiltrate, pulmonary edema, free air under the diaphragm, or wide mediastinum. Impression: No acute disease. HPI: The patient is a 85 year old female who presents to the Emergency Room with complaints of illness. This started a few days ago worsening and is . The patient also notes the following associated symptoms, mild cough, fatigue, weakness, nausea, dysuria, urinary frequency and urgency. Patient's caregiver had upper respiratory symptoms over 10 weeks ago. She was recently diagnosed with Covid. Patient has not received Covid immunizations yet. The patient has found no relieving factors. Current pain is rated as 0/10. Pt denies LOC, headache, fevers, chills, diaphoresis, visual changes, neck pain, chest pain, breathing difficulties, vomiting, abdominal pain, back pain, melena, hematochez ia, numbness, lymphadenopathy, rash, or other complaints. ROS: See above HPI for pertinent positives & negatives. A total of 10 systems reviewed and were otherwise negative. PAST MEDICAL HISTORY:See Below , UTI PAST SURGICAL HISTORY:See Below, FAMILY HISTORY:See Below SOCIAL HISTORY:See Below, retired HOME MEDICATIONS:See Below ALLERGIES:See Below VITALS:See Below PHYSICAL EXAMINATION: GENERAL: Awake, tired appearing, in no distress HENT: Normocephalic, atraumatic. Oropharynx unremarkable. EYES: Normal conjunctiva. Sclera non-icteric. NECK: Inspection normal. Non-tender. Supple. No nuchal rigidity. FROM. No masses. RESPIRATORY: Clear to auscultation. No wheezes. No rales. Normal respiratory effort. CARDIAC: Normal rate. Normal rhythm. No murmurs. No rubs. Extremities warm and well perfused. Pulses equal. No JVD. GI: Soft, non-distended. No tenderness to palpation. No rebound or guarding. No masses. RECTAL: Deferred. MUSCULOSKELETAL: Atraumatic. Chest examination reveals no tenderness. The back is symmetrical on inspection without obvious abnormality. There is no CVA tenderness to palpation. No joint edema. LOWER EXTREMITIES: Calves are equal size bilaterally and non-tender. No edema. No discoloration. NEURO: Normal sensorium. No sensory or motor deficits noted. SKIN: No rash or jaundice noted. Don Rubio MD Past Med/Surg History Medical History (Updated 02/11/21 @ 18:57 by Don Rubio MD) Chronic back pain Chronic systolic heart failure CKD (chronic kidney disease), stage III Coronary artery disease Depression Dyslipidemia GERD (gastroesophageal reflux disease) History of malignant melanoma HTN (hypertension) IBS (irritable bowel syndrome) Ischemic cardiomyopathy Osteoporosis Surgical History History of hysterectomy History of spinal fusion S/P bilateral oophorectomy S/P lumbar laminectomy Status post coronary artery stent placement Status post dilation of esophageal narrowing Family History Mother Diabetes Hypertension Social History Smoking Status: Never smoker Second Hand Exposure: No; Hx Alcohol Use: No Hx Substance Use: No Preferred Language: Luxembourgish Communication Ability: Effective Gas Meter Reader Required: No Beliefs That Will Affect Care: None marital status: / Current Living Situation: Alone current occupational status: retired Other Information That Helps Us Care for You: No Feels Safe at Home: Yes Safety Concerns: Feels Safe At This Time Assistive Devices: Walker Allergies Allergies Allergy/AdvReac Type Severity Reaction Status Date / Time morphine Allergy Intermediate itching Unverified 02/11/21 11:53 sulfamethoxazole AdvReac Severe Hallucinati Verified 02/11/21 11:53 [From Bactrim] ng trimethoprim [From Bactrim] AdvReac Severe Hallucinati Verified 02/11/21 11:53 ng atenolol AdvReac Intermediate Nausea Verified 02/11/21 11:53 citalopram AdvReac Intermediate NAUSEA,SARAH, Verified 02/11/21 11:53 AGITATION diclofenac AdvReac Intermediate Nausea Verified 02/11/21 11:53 simvastatin AdvReac Intermediate Muscle Pain Verified 02/11/21 11:53 chlorpromazine AdvReac Unknown "OPPOSITE Unverified 02/11/21 11:53 EFFECT OF WHAT IT WAS SUPPOSED TO DO" pantoprazole AdvReac Diarrhea Verified 02/11/21 11:53 Home Meds Home Medications Medication Instructions Recorded Confirmed Systane (PF) 1 drp OPL BID PRN 08/15/19 02/11/21 cholecalciferol (vitamin D3) 1,000 unit PO DAILY 08/15/19 02/11/21 [Vitamin D3] cyanocobalamin (vitamin B-12) 1,000 mcg PO DAILY 08/15/19 02/11/21 [Vitamin B-12] fluoxetine [Prozac] 20 mg PO DAILY 08/15/19 02/11/21 folic acid 1 mg PO DAILY 08/15/19 02/11/21 gabapentin [Neurontin] 600 mg PO TID 08/15/19 02/11/21 hydrocortisone 1 applic TOPICAL TID PRN 08/15/19 02/11/21 latanoprost [Xalatan] 1 drp OPR HS 08/15/19 02/11/21 metoprolol succinate [Toprol XL] 50 mg PO DAILY 08/15/19 02/11/21 nitroglycerin [Nitrostat] 0.4 mg SUBLINGUAL UD PRN 08/15/19 02/11/21 guaifenesin 200 mg PO TID PRN 09/05/19 02/11/21 hydromorphone 4 mg PO Q6H 12/24/19 02/11/21 lansoprazole 30 mg PO DAILY 12/24/19 02/11/21 losartan 50 mg PO DAILY 12/24/19 02/11/21 aspirin [Aspir-81] 81 mg PO DAILY 02/11/21 02/11/21 diclofenac sodium 2 g TOPICAL BID 02/11/21 02/11/21 Results & Data (ED) Vital Signs Vital Signs - 24 hr 02/11/21 11:09 02/11/21 11:11 02/11/21 11:13 Temperature 37.4 C Temperature Source Oral Pulse Rate 79 76 Pulse Rate from SpO2 Sensor 78 81 Respiratory Rate 15 23 19 Respiratory Effort / Characteristics Non-Labored Respiratory Depth Normal Blood Pressure 106/84 106/84 Blood Pressure Mean 91 91 Blood Pressure Position Sitting Pulse Oximetry 91 91 90 Oxygen Delivery Method Room Air Oxygen Flow Rate Sepsis Recent Fever Within 48 Hours No Sepsis New/Unexplained Change in Mental Status No Sepsis Action Taken by Nursing No Action Required 02/11/21 11:20 02/11/21 11:30 02/11/21 11:34 Temperature Temperature Source Pulse Rate 77 72 Pulse Rate from SpO2 Sensor 79 73 Respiratory Rate 15 15 Respiratory Effort / Characteristics Respiratory Depth Blood Pressure 154/78 H Blood Pressure Mean 103 Blood Pressure Position Pulse Oximetry 93 90 90 Oxygen Delivery Method Room Air Room Air Room Air Oxygen Flow Rate Sepsis Recent Fever Within 48 Hours Sepsis New/Unexplained Change in Mental Status Sepsis Action Taken by Nursing 02/11/21 11:40 02/11/21 11:50 02/11/21 11:56 Temperature Temperature Source Pulse Rate 73 69 Pulse Rate from SpO2 Sensor 73 68 Respiratory Rate 12 18 Respiratory Effort / Characteristics Respiratory Depth Blood Pressure Blood Pressure Mean Blood Pressure Position Pulse Oximetry 88 L 86 L 94 Oxygen Delivery Method Room Air Room Air Nasal Cannula Oxygen Flow Rate 3 Sepsis Recent Fever Within 48 Hours Sepsis New/Unexplained Change in Mental Status Sepsis Action Taken by Nursing 02/11/21 12:00 02/11/21 12:01 02/11/21 12:10 Temperature Temperature Source Pulse Rate 66 66 65 Pulse Rate from SpO2 Sensor 65 67 65 Respiratory Rate 15 17 18 Respiratory Effort / Characteristics Respiratory Depth Blood Pressure 134/78 Blood Pressure Mean 96 Blood Pressure Position Pulse Oximetry 98 98 98 Oxygen Delivery Method Nasal Cannula Nasal Cannula Nasal Cannula Oxygen Flow Rate 3 3 3 Sepsis Recent Fever Within 48 Hours Sepsis New/Unexplained Change in Mental Status Sepsis Action Taken by Nursing 02/11/21 12:20 02/11/21 12:30 02/11/21 12:31 Temperature Temperature Source Pulse Rate 65 74 79 Pulse Rate from SpO2 Sensor 65 73 75 Respiratory Rate 21 17 15 Respiratory Effort / Characteristics Respiratory Depth Blood Pressure 138/70 Blood Pressure Mean 92 Blood Pressure Position Pulse Oximetry 98 99 99 Oxygen Delivery Method Nasal Cannula Nasal Cannula Nasal Cannula Oxygen Flow Rate 3 3 3 Sepsis Recent Fever Within 48 Hours Sepsis New/Unexplained Change in Mental Status Sepsis Action Taken by Nursing 02/11/21 12:40 02/11/21 12:50 02/11/21 13:00 Temperature Temperature Source Pulse Rate 65 63 72 Pulse Rate from SpO2 Sensor 65 63 68 Respiratory Rate 13 21 13 Respiratory Effort / Characteristics Respiratory Depth Blood Pressure Blood Pressure Mean Blood Pressure Position Pulse Oximetry 98 99 98 Oxygen Delivery Method Oxygen Flow Rate Sepsis Recent Fever Within 48 Hours Sepsis New/Unexplained Change in Mental Status Sepsis Action Taken by Nursing 02/11/21 13:01 02/11/21 13:10 02/11/21 13:20 Temperature Temperature Source Pulse Rate 66 69 69 Pulse Rate from SpO2 Sensor 67 68 71 Respiratory Rate 15 18 17 Respiratory Effort / Characteristics Respiratory Depth Blood Pressure 159/82 H Blood Pressure Mean 107 Blood Pressure Position Pulse Oximetry 98 97 95 Oxygen Delivery Method Oxygen Flow Rate Sepsis Recent Fever Within 48 Hours Sepsis New/Unexplained Change in Mental Status Sepsis Action Taken by Nursing 02/11/21 13:30 02/11/21 13:40 02/11/21 13:50 Temperature Temperature Source Pulse Rate 79 67 64 Pulse Rate from SpO2 Sensor 79 66 64 Respiratory Rate 24 12 13 Respiratory Effort / Characteristics Respiratory Depth Blood Pressure Blood Pressure Mean Blood Pressure Position Pulse Oximetry 98 89 L 89 L Oxygen Delivery Method Nasal Cannula Nasal Cannula Oxygen Flow Rate 2 2 Sepsis Recent Fever Within 48 Hours Sepsis New/Unexplained Change in Mental Status Sepsis Action Taken by Nursing 02/11/21 13:57 02/11/21 14:00 02/11/21 14:01 Temperature Temperature Source Pulse Rate 69 67 Pulse Rate from SpO2 Sensor 66 67 Respiratory Rate 15 16 Respiratory Effort / Characteristics Respiratory Depth Blood Pressure 141/71 H Blood Pressure Mean 94 Blood Pressure Position Pulse Oximetry 92 90 97 Oxygen Delivery Method Nasal Cannula Oxygen Flow Rate 3 Sepsis Recent Fever Within 48 Hours Sepsis New/Unexplained Change in Mental Status Sepsis Action Taken by Nursing Laboratory Data Result diagrams: 02/11/21 11:20 02/11/21 11:20 Lab Results 02/11/21 02/11/21 02/11/21 Range/Units 11:20 11:20 11:20 WBC 3.40 L (4.8-10.8) K/uL RBC 4.05 L (4.2-5.4) M/uL Hgb 10.9 L (12.0-16.0) g/dL Hct 33.0 L (37-47) % MCV 81.5 (80-100) fL MCH 26.9 (25-34) pg MCHC 33.0 (32-36) g/dL RDW Std Deviation 45.4 (36.4-46.3) fL RDW Coeff of Erin 15.0 H (11.5-14.5) % Plt Count 169 (130-400) K/uL MPV 9.8 (7.4-10.4) fL Immature Gran % (Auto) 0.3 % Neut % (Auto) 58.0 % Lymph % (Auto) 18.5 % Mcmullen % (Auto) 22.9 % Eos % (Auto) 0.0 % Baso % (Auto) 0.3 % Neut # (Auto) 1.97 (1.4-6.5) K/uL Lymph # (Auto) 0.63 L (1.2-3.4) K/uL [place]ullen # (Auto) 0.78 H (0.11-0.59) K/uL Eos # (Auto) 0.00 (0-0.5) K/uL Baso # (Auto) 0.01 (0-0.2) K/uL Immature Gran # (Auto) 0.01 (0.00-0.02) K/uL ESR (0-30) mm/hr Sodium 132 L (136-145) mmol/L Potassium 4.1 (3.5-5.1) mmol/L Chloride 97 L (98-107) mmol/L Carbon Dioxide 26 (21-32) mmol/L Anion Gap 9.0 (3-11) BUN 13 (7-18) mg/dl Creatinine 0.90 (0.6-1.2) mg/dl Est Cr Clr Drug Dosing 45.3 ml/min Est GFR ( Amer) 67.1 ml/min Est GFR (Non-Af Amer) 57.9 ml/min BUN/Creatinine Ratio 14.8 (10-20) Glucose 101 H (70-99) mg/dl Calcium 8.9 (8.5-10.1) mg/dl Magnesium 1.8 (1.8-2.4) mg/dl Total Bilirubin 0.5 (0.2-1) mg/dl AST 39 H (15-37) U/L ALT 19 (12-78) U/L Alkaline Phosphatase 50 (45-117) U/L C-Reactive Protein (0-0.29) mg/dl Total Protein 7.4 (6.4-8.2) gm/dl Albumin 3.3 L (3.4-5.0) gm/dl Globulin 4.1 H (2.5-4.0) gm/dl Albumin/Globulin Ratio 0.8 L (0.9-2) Procalcitonin (0-0.5) ng/ml TSH 1.030 (0.300-4.500) uIu/ml Urine Color Yellow Urine Appearance Clear (Clear) Urine pH 7.0 (4.5-7.5) Ur Specific [place] 1.015 (1.000-1.030) Urine Protein 2+ H (Negative) Urine Glucose (UA) Negative (Negative) Urine Ketones 1+ H (Negative) Urine Blood 1+ H (Negative) Urine Nitrite Negative (Negative) Urine Bilirubin 1+ H (Negative) Urine Urobilinogen Negative (Negative) Ur Leukocyte Esterase Negative (Negative) Urine RBC 0-4 (0-4) /hpf Urine WBC 0-5 (0-5) /hpf Ur Epithelial Cells 0-5 (0-5) /lpf Urine Bacteria Negative (Negative) COVID-19 Eval Order SARS-CoV-2 (PCR) (Negative) 02/11/21 02/11/21 02/11/21 Range/Units 11:20 11:20 11:30 WBC (4.8-10.8) K/uL RBC (4.2-5.4) M/uL Hgb (12.0-16.0) g/dL Hct (37-47) % MCV (80-100) fL MCH (25-34) pg MCHC (32-36) g/dL RDW Std Deviation (36.4-46.3) fL RDW Coeff of Erin (11.5-14.5) % Plt Count (130-400) K/uL MPV (7.4-10.4) fL Immature Gran % (Auto) % Neut % (Auto) % Lymph % (Auto) % [place] % (Auto) % Eos % (Auto) % Baso % (Auto) % Neut # (Auto) (1.4-6.5) K/uL Lymph # (Auto) (1.2-3.4) K/uL [place] # (Auto) (0.11-0.59) K/uL Eos # (Auto) (0-0.5) K/uL Baso # (Auto) (0-0.2) K/uL Immature Gran # (Auto) (0.00-0.02) K/uL ESR (0-30) mm/hr Sodium (136-145) mmol/L Potassium (3.5-5.1) mmol/L Chloride (98-107) mmol/L Carbon Dioxide (21-32) mmol/L Anion Gap (3-11) BUN (7-18) mg/dl Creatinine (0.6-1.2) mg/dl Est Cr Clr Drug Dosing ml/min Est GFR ( Amer) ml/min Est GFR (Non-Af Amer) ml/min BUN/Creatinine Ratio (10-20) Glucose (70-99) mg/dl Calcium (8.5-10.1) mg/dl Magnesium (1.8-2.4) mg/dl Total Bilirubin (0.2-1) mg/dl AST (15-37) U/L ALT (12-78) U/L Alkaline Phosphatase (45-117) U/L C-Reactive Protein (0-0.29) mg/dl Total Protein (6.4-8.2) gm/dl Albumin (3.4-5.0) gm/dl Globulin (2.5-4.0) gm/dl Albumin/Globulin Ratio (0.9-2) Procalcitonin < 0.05 (0-0.5) ng/ml TSH (0.300-4.500) uIu/ml Urine Color Urine Appearance (Clear) Urine pH (4.5-7.5) Ur Specific [place] (1.000-1.030) Urine Protein (Negative) Urine Glucose (UA) (Negative) Urine Ketones (Negative) Urine Blood (Negative) Urine Nitrite (Negative) Urine Bilirubin (Negative) Urine Urobilinogen (Negative) Ur Leukocyte Esterase (Negative) Urine RBC (0-4) /hpf Urine WBC (0-5) /hpf Ur Epithelial Cells (0-5) /lpf Urine Bacteria (Negative) COVID-19 Eval Order Covid19 at [facility] SARS-CoV-2 (PCR) POSITIVE A* (Negative) 02/11/21 02/11/21 Range/Units 11:30 11:30 WBC (4.8-10.8) K/uL RBC (4.2-5.4) M/uL Hgb (12.0-16.0) g/dL Hct (37-47) % MCV (80-100) fL MCH (25-34) pg MCHC (32-36) g/dL RDW Std Deviation (36.4-46.3) fL RDW Coeff of Erin (11.5-14.5) % Plt Count (130-400) K/uL MPV (7.4-10.4) fL Immature Gran % (Auto) % Neut % (Auto) % Lymph % (Auto) % [place] % (Auto) % Eos % (Auto) % Baso % (Auto) % Neut # (Auto) (1.4-6.5) K/uL Lymph # (Auto) (1.2-3.4) K/uL [place] # (Auto) (0.11-0.59) K/uL Eos # (Auto) (0-0.5) K/uL Baso # (Auto) (0-0.2) K/uL Immature Gran # (Auto) (0.00-0.02) K/uL ESR 40 H (0-30) mm/hr Sodium (136-145) mmol/L Potassium (3.5-5.1) mmol/L Chloride (98-107) mmol/L Carbon Dioxide (21-32) mmol/L Anion Gap (3-11) BUN (7-18) mg/dl Creatinine (0.6-1.2) mg/dl Est Cr Clr Drug Dosing ml/min Est GFR ( Amer) ml/min Est GFR (Non-Af Amer) ml/min BUN/Creatinine Ratio (10-20) Glucose (70-99) mg/dl Calcium (8.5-10.1) mg/dl Magnesium (1.8-2.4) mg/dl Total Bilirubin (0.2-1) mg/dl AST (15-37) U/L ALT (12-78) U/L Alkaline Phosphatase (45-117) U/L C-Reactive Protein 8.29 H (0-0.29) mg/dl Total Protein (6.4-8.2) gm/dl Albumin (3.4-5.0) gm/dl Globulin (2.5-4.0) gm/dl Albumin/Globulin Ratio (0.9-2) Procalcitonin (0-0.5) ng/ml TSH (0.300-4.500) uIu/ml Urine Color Urine Appearance (Clear) Urine pH (4.5-7.5) Ur Specific [place] (1.000-1.030) Urine Protein (Negative) Urine Glucose (UA) (Negative) Urine Ketones (Negative) Urine Blood (Negative) Urine Nitrite (Negative) Urine Bilirubin (Negative) Urine Urobilinogen (Negative) Ur Leukocyte Esterase (Negative) Urine RBC (0-4) /hpf Urine WBC (0-5) /hpf Ur Epithelial Cells (0-5) /lpf Urine Bacteria (Negative) COVID-19 Eval Order SARS-CoV-2 (PCR) (Negative) Administered Medications Gabapentin (Gabapentin 600 Mg Tab) 600 mg PO TID JENA Stop: 03/13/21 16:04 Last Admin: 02/11/21 16:48 Dose: 600 mg Documented by: [id number] Discontinued Medications Acetaminophen (Acetaminophen 1000 Mg/100 Ml Iv) 1,000 mg IV ONE ONE Stop: 02/11/21 15:29 Last Admin: 02/11/21 16:49 Dose: 1,000 mg Documented by: [id number] Dexamethasone Sodium Phosphate (DexamethasonePf 10 Mg/Ml Vial) 6 mg IV NOW ONE Stop: 02/11/21 13:00 Last Admin: 02/11/21 13:26 Dose: 6 mg Documented by: [id number] Enoxaparin Sodium (Enoxaparin Inj 40 Mg/0.4 Ml Syr) 40 mg SQ NOW ONE Stop: 02/11/21 15:31 Last Admin: 02/11/21 16:47 Dose: 40 mg Documented by: [id number] Remdesivir 200 mg/ Sodium (Chloride) 250 mls @ 125 mls/hr IV ONE STA; Protocol Stop: 02/11/21 17:15 Last Admin: 02/11/21 16:47 Dose: 125 mls/hr Documented by: [id number] Furosemide 10 mg/ Syringe 1 mls @ 4 mls/min IV ONE ONE Stop: 02/11/21 16:01 Last Admin: 02/11/21 16:47 Dose: 4 mls/min Documented by: [id number] Ondansetron HCl (Ondansetron Inj 2 Mg/Ml 2 Ml Vial) 4 mg IV NOW STA Stop: 02/11/21 13:58 Last Admin: 02/11/21 14:04 Dose: 4 mg Documented by: [id number] Sodium Chloride (Sodium Chloride 0.9% 10ml Flush) 30 ml IV ONE ONE Stop: 02/11/21 17:17 Last Admin: 02/11/21 16:48 Dose: 30 ml Documented by: [id number] Imaging Data Radiologist's Impression: Chest X-Ray 02/11/21 12:59 XR chest 1V portable HISTORY: 85 years-old Female +covid acute shortness of breath. COVID Positive. COMPARISON: Chest radiograph 12/25/2019 TECHNIQUE: Portable AP view of the chest FINDINGS: Cardiomediastinal and hilar silhouettes are within normal limits. No p neumothorax, pleural effusion, airspace consolidation or overt pulmonary edema. Calcified plaque of the thoracic aorta. Hiatal hernia. The bones appear grossly intact. IMPRESSION: No acute process. ACT 112: Negative or not required by law. The above report was generated using voice recognition software. It may contain grammatical, syntax or spelling errors. Electronically signed by: Adolfo Chvaez M.D. 02/11/2021 1:27 PM Discharge Plan Visit Data Chief Complaint: Illness ED Provider: Don Rubio Discharge Problem: COVID-19, Hypoxia Patient Disposition: Admitted As Inpatient Discharge Instructions Interventions: ED Discharge Assessment Last Done: 02/11/21 14:44
[2021-02-11 11:51] LABS: Albumin Level 3.3 gm/dl (3.4-5.0); BUN Creatinine Ratio 14.8 (10-20); Calcium 8.9 mg/dl (8.5-10.1); Creatinine Clr Calc Pharmacy 45.3 ml/min; Est GFR (African American) 67.1 ml/min; Est GFR (Non-African American) 57.9 ml/min; Magnesium 1.8 mg/dl (1.8-2.4); Potassium 4.1 mmol/L (3.5-5.1)
[2021-02-11 12:01] LABS: Albumin Globulin Ratio 0.8 (0.9-2); Bilirubin,Total 0.5 mg/dl (0.2-1); Globulin 4.1 gm/dl (2.5-4.0); Thyroid Stimulating Hormone 1.03 uIu/ml (0.300-4.500); Total Protein 7.4 gm/dl (6.4-8.2)
[2021-02-11 12:05] LABS: Appearance Urine Clear (Clear); Bilirubin Urine 1+ (Negative); Blood Urine 1+ (Negative); Color Urine Yellow; Glucose Urine UA Negative (Negative); Ketones Urine 1+ (Negative); Leukocyte Esterase Urine Negative (Negative); Nitrite Urine Negative (Negative); Protein Urine 2+ (Negative); Specific Gravity Urine 1.015 (1.000-1.030); Urobilinogen Urine Negative (Negative)
--- NOTE | 2021-02-11 12:16 | Electrocardiogram Report ---
Test Reason : Blood Pressure : / mmHG Vent. Rate : 072 BPM Atrial Rate : 072 BPM P-R Int : 162 ms QRS Dur : 102 ms QT Int : 386 ms P-R-T Axes : 043 -51 048 degrees QTc Int : 422 ms Poor data quality, interpretation may be adversely affected Normal sinus rhythm Left anterior fascicular block Minimal voltage criteria for LVH, may be normal variant Abnormal ECG When compared with ECG of 25-DEC-2019 23:27, Left anterior fascicular block is now Present Confirmed by Manuel Gonzalez ([id number]) on 02/11/2021 12:15:49 PM Referred By: REFERRED SELF Confirmed By:Danny Gonzalez
[2021-02-11 12:19] LABS: Bacteria Urine Negative (Negative); Epithelial Cell Urine 0-5 /lpf (0-5); RBC Urine 0-4 /hpf (0-4); WBC Urine 0-5 /hpf (0-5)
[2021-02-11] MEDS ORDERED: dexAMETHasone**PF** 10 MG/ML VIAL IV ONE (12:59)
--- NOTE | 2021-02-11 13:28 | XRay Report ---
XR chest 1V portable HISTORY: 85 years-old Female +covid acute shortness of breath. COVID Positive. COMPARISON: Chest radiograph 12/25/2019 TECHNIQUE: Portable AP view of the chest FINDINGS: Cardiomediastinal and hilar silhouettes are within normal limits. No pneumothorax, pleural effusion, airspace consolidation or overt pulmonary edema. Calcified plaque of the thoracic aorta. Hiatal herni a. The bones appear grossly intact. IMPRESSION: No acute process. ACT 112: Negative or not required by law. The above report was generated using voice recognition software. It may contain grammatical, syntax o r spelling errors. Electronically signed by: Adolfo Chavez M.D. 02/11/2021 1:27 PM
[2021-02-11] MEDS ORDERED: ONDANSETRON INJ 2 MG/ML 2 ML VIAL IV STA (13:57)
--- NOTE | 2021-02-11 14:24 | History & Physical Report ---
Date of Service February 11, 2021 Assessment & Plan (1) Acute respiratory failure with hypoxia: (2) COVID-19: This is an 85yo F with a PMH of CAD, systolic heart failure, HTN, CKD III, depression, chronic back pain and other medical problems listed below who presents with rhinorrhea and fatigue x3 days and was found to have covid 19 on PCR testing as well as acute respiratory failure with hypoxia. Covid-19 PCR positive today on 02/11/21 Saturating in high 80s on room air, improved to 97% on 3L NC ESR 40, CRP 8.29, procalcitonin wnl Started on IV dexamethasone, Remdesivir, continue supplemental O2 Covid isolation precautions SQ Lovenox 40mg Q12H for DVT ppt Monitor labs daily (3) HTN (hypertension): Continue losartan, Toprol (4) CKD (chronic kidney disease), stage III: Kidney function at baseline. Continue to monitor with daily BMP (5) Chronic systolic heart failure: Appears compensated. No evidence of volume overload on CXR Not on home diuretics TTE from 2009 with EF: 40-45% Monitor volume status closely (6) Coronary artery disease: Denies chest pain. No acute EKG changes Continue aspirin, Toprol (7) GERD (gastroesophageal reflux disease): Continue PPI (8) Chronic back pain: Continue home gabapentin, Dilaudid (9) Depression: Continue SSRI DVT Ppx: SQ Lovenox Q12H Code status: FULL PCP: Zaynab Dispo: Admitted to PCU. Discharge planning ordered. Patient seen in collaboration with Dr. Elizalde. Please see addendum. History of Present Illness Chief Complaint: mailaise Primary Care Provider: Corinna Worthy MD This is an 85yo F with a PMH of CAD (s/p stent), systolic heart failure, HTN, CKD III, depression, chronic back pain and other medical problems listed below who presents with rhinorrhea and fatigue x3 days. Care provider has been symptomatic for past week with nasal congestion and rhinorrhea and just tested positive for Covid earlier today. Patient came to ED for further evaluation and testing. Endorses rhinorrhea over the past few days as well as some congestion and malaise. Denies fever, chills, chest pain or shortness of breath. No wheezing. Endorses some nausea and one episode of vomiting a few days ago that has not recurred. No abdominal pain. Some dysuria. No diarrhea or constipation. Patient lives alone and receives some help with ADLs from care provider. Allergies Allergy/AdvReac Type Severity Reaction Status Date / Time morphine Allergy Intermediate itching Unverified 02/11/21 11:53 sulfamethoxazole AdvReac Severe Hallucinati Verified 02/11/21 11:53 [From Bactrim] ng trimethoprim [From Bactrim] AdvReac Severe Hallucinati Verified 02/11/21 11:53 ng atenolol AdvReac Intermediate Nausea Verified 02/11/21 11:53 citalopram AdvReac Intermediate NAUSEA,SARAH, Verified 02/11/21 11:53 AGITATION diclofenac AdvReac Intermediate Nausea Verified 02/11/21 11:53 simvastatin AdvReac Intermediate Muscle Pain Verified 02/11/21 11:53 chlorpromazine AdvReac Unknown "OPPOSITE Unverified 02/11/21 11:53 EFFECT OF WHAT IT WAS SUPPOSED TO DO" pantoprazole AdvReac Diarrhea Verified 02/11/21 11:53 Home Medications Medication Instructions Recorded Confirmed Type Systane (PF) 1 drp OPL BID PRN 08/15/19 02/11/21 History cholecalciferol (vitamin D3) 1,000 unit PO DAILY 08/15/19 02/11/21 History [Vitamin D3] cyanocobalamin (vitamin B-12) 1,000 mcg PO DAILY 08/15/19 02/11/21 History [Vitamin B-12] fluoxetine [Prozac] 20 mg PO DAILY 08/15/19 02/11/21 History folic acid 1 mg PO DAILY 08/15/19 02/11/21 History gabapentin [Neurontin] 600 mg PO QID 08/15/19 02/11/21 History hydrocortisone 1 applic TOPICAL TID PRN 08/15/19 02/11/21 History latanoprost [Xalatan] 1 drp OPR HS 08/15/19 02/11/21 History metoprolol succinate [Toprol XL] 50 mg PO DAILY 08/15/19 02/11/21 History nitroglycerin [Nitrostat] 0.4 mg SUBLINGUAL UD PRN 08/15/19 02/11/21 History guaifenesin 200 mg PO TID PRN 09/05/19 02/11/21 History hydromorphone 4 mg PO Q6H 03/29/20 05/18/21 History lansoprazole 30 mg PO DAILY 12/24/19 02/11/21 History losartan 50 mg PO DAILY 12/24/19 02/11/21 History aspirin [Aspir-81] 81 mg PO DAILY 02/11/21 02/11/21 History diclofenac sodium 2 g TOPICAL BID 02/11/21 02/11/21 History Past Med/Surg History Medical History (Updated 02/11/21 @ 14:48 by Fransisca Orellana PA-C) Chronic back pain Chronic systolic heart failure CKD (chronic kidney disease), stage III Coronary artery disease Depression Dyslipidemia GERD (gastroesophageal reflux disease) History of malignant melanoma HTN (hypertension) IBS (irritable bowel syndrome) Ischemic cardiomyopathy Osteoporosis Surgical History History of hysterectomy History of spinal fusion S/P bilateral oophorectomy S/P lumbar laminectomy Status post coronary artery stent placement Status post dilation of esophageal narrowing Family History Mother Diabetes Hypertension Social History Smoking Status: Never smoker Second Hand Exposure: No; Hx Alcohol Use: No Hx Substance Use: No Preferred Language: Macedonian Communication Ability: Effective Casting Inspector Required: No Beliefs That Will Affect Care: None marital status: / Current 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 occupational status: retired Feels Safe at Home: Yes Assistive Devices: None and Walker Review of Systems Review of Systems: At least ten systems reviewed and negative except as noted in the HPI. Physical Exam Physical Exam: Please see Dr. Elizalde's addendum for physical exam details. Results & Data Results & Data ([facility]) Vital Signs (Past 12 Hours) Vital Signs Temp Pulse Resp BP Pulse Ox 02/11/21 13:57 92 02/11/21 13:50 64 13 89 L 02/11/21 13:40 67 12 89 L 02/11/21 13:30 79 24 98 02/11/21 13:20 69 17 95 02/11/21 13:10 69 18 97 02/11/21 13:01 66 15 159/82 H 98 02/11/21 13:00 72 13 98 02/11/21 12:50 63 21 99 02/11/21 12:40 65 13 98 02/11/21 12:31 79 15 99 02/11/21 12:30 74 17 138/70 99 02/11/21 12:20 65 21 98 02/11/21 12:10 65 18 98 02/11/21 12:01 66 17 98 02/11/21 12:00 66 15 134/78 98 02/11/21 11:56 94 02/11/21 11:50 69 18 86 L 02/11/21 11:40 73 12 88 L 02/11/21 11:34 90 02/11/21 11:30 72 15 154/78 H 90 02/11/21 11:20 77 15 93 02/11/21 11:13 37.4 C 76 19 106/84 90 02/11/21 11:11 23 91 02/11/21 11:09 79 15 106/84 91 Laboratory Results Short CBC 02/11/21 Range/Units 11:20 WBC 3.40 L (4.8-10.8) K/uL Hgb 10.9 L (12.0-16.0) g/dL Hct 33.0 L (37-47) % Plt Count 169 (130-400) K/uL BMP 02/11/21 11:20 Sodium 132 L Potassium 4.1 Chloride 97 L Carbon Dioxide 26 BUN 13 Creatinine 0.90 Glucose 101 H Calcium 8.9 Liver Function 02/11/21 Range/Units 11:20 Total Bilirubin 0.5 (0.2-1) mg/dl AST 39 H (15-37) U/L ALT 19 (12-78) U/L Alkaline Phosphatase 50 (45-117) U/L Albumin 3.3 L (3.4-5.0) gm/dl Urine 02/11/21 Range/Units 11:20 Urine Color Yellow Urine Appearance Clear (Clear) Urine pH 7.0 (4.5-7.5) Ur Specific [place] 1.015 (1.000-1.030) Urine Protein 2+ H (Negative) Urine Glucose (UA) Negative (Negative) Diagnostic Findings Chest X-Ray 02/11/21 12:59 XR chest 1V portable HISTORY: 85 years-old Female +covid acute shortness of breath. COVID Positive. COMPARISON: Chest radiograph 12/25/2019 TECHNIQUE: Portable AP view of the chest FINDINGS: Cardiomediastinal and hilar silhouettes are within normal limits. No pneumothorax, pleural effusion, airspace consolidation or overt pulmonary edema. Calcified plaque of the thoracic aorta. Hiatal hernia. The bones appear grossly intact. IMPRESSION: No acute process. ACT 112: Negative or not required by law. The above report was generated using voice recognition software. It may contain grammatical, syntax or spelling errors. Electronically signed by: Adolfo Chavez M.D. 02/11/2021 1:27 PM Code Status & VTE Plan VTE Prophylaxis Plan VTE Prophylaxis will be ordered: Yes Supervising Physician Co-Signing Physician Notes Patient seen and examined by me, care coordinated with Fransisca Orellana PA-C, please refer to her note above for further detail. Patient is an 85-year-old female, who presents with nausea, weakness and overall not feeling well, rhinorrhea, nasal congestion. Her caregiver tested positive for COVID-19, and patient tested positive for COVID-19 today in the ED. She was also found hypoxic in 80s, currently on 3 L of nasal cannula supplemental oxygen. She is sitting up in bed, in no acute distress, denies any significant dyspnea. Overall seems comfortable, but says that she has some abdominal discomfort and feeling nauseous. Denies chest pain. She is able to answer most questions appropriately. Heart sounds regular. Lung sounds with very mild diffuse rhonchi, no wheezing or crackles. Abdomen soft, nontender nondistended. No lower extremity edema noted, patient moves extremities spontaneously and without difficulty. Patient was started on Decadron in the ED, she has history of CKD however her creatinine is less than 1, will start remdesivir, and Lovenox. Will obtain procalcitonin. We will obtain further history from the caregiver. Will admit to tele and closely monitor. Andrzej Elizalde MD
[2021-02-11] MEDS ORDERED: REMDESIVIR 200 MG in SODIUM CHLORIDE 0.9% 210 ML IV STA ×2 (15:16→15:17)
[2021-02-11] MEDS ORDERED: ACETAMINOPHEN 325 MG TAB PO PRN (15:17)
[2021-02-11] MEDS ORDERED: POLYETHYLENE (MIRALAX) 17 GM PACK PO PRN (15:17)
[2021-02-11] MEDS ORDERED: ONDANSETRON INJ 2 MG/ML 2 ML VIAL IV PRN (15:17)
[2021-02-11] MEDS ORDERED: ACETAMINOPHEN 1000 MG/100 ML IV IV ONE (15:28)
[2021-02-11] MEDS ORDERED: ENOXAPARIN INJ 40 MG/0.4 ML SYR SQ ONE (15:30)
[2021-02-11] MEDS ORDERED: ARTIFICIAL TEARS OP PRN (15:39)
[2021-02-11] MEDS ORDERED: NITROGLYCERIN SL 0.4 MG/TAB TAB SL PRN (15:39)
[2021-02-11] MEDS ORDERED: guaiFENesin SUGAR FREE 100 MG/5 ML UDC PO PRN (15:39)
[2021-02-11] MEDS ORDERED: FUROSEMIDE 10 MG in SYRINGE 0 ML IV ONE (16:00)
[2021-02-11] MEDS: GABAPENTIN 600 MG TAB PO SCH ×2 (16:48→21:18)
[2021-02-11] MEDS ORDERED: SODIUM CHLORIDE 0.9% 10ML FLUSH IV ONE (17:16)
[2021-02-11] MEDS: HYDROmorphone HCL 2 MG TAB PO PRN (20:04)
[2021-02-11] MEDS ORDERED: GABAPENTIN 600 MG TAB PO SCH (21:00)
[2021-02-11] MEDS: DICLOFENAC SOD 1% GEL 100 GM TUBE EXT SCH (21:17)
[2021-02-11] MEDS: LATANOPROST 0.005% OP SOLN 2.5 ML BTL OPR SCH (21:17)
[2021-02-12] MEDS: HYDROmorphone HCL 2 MG TAB PO PRN ×3 (03:48→16:49)
[2021-02-12] MEDS: ENOXAPARIN INJ 40 MG/0.4 ML SYR SQ SCH ×2 (03:49→16:50)
[2021-02-12 05:57] LABS: Hematocrit (blood only) 31.6 % (37-47); Hemoglobin 10.3 g/dL (12.0-16.0); Mean Corpuscular Hemoglobin 26.1 pg (25-34); Mean Corpuscular Hgb Conc 32.6 g/dL (32-36); Mean Corpuscular Volume 80.2 fL (80-100); Mean Platelet Volume 9.2 fL (7.4-10.4); Platelet Count 168 K/uL (130-400); RDW Coefficient of Variation 14.8 % (11.5-14.5); Red Blood Count 3.94 M/uL (4.2-5.4); White Blood Count 2.11 K/uL (4.8-10.8)
[2021-02-12 06:31] LABS: Albumin Level 2.9 gm/dl (3.4-5.0); BUN Creatinine Ratio 18.8 (10-20); Creatinine Clr Calc Pharmacy 43.3 ml/min; Est GFR (African American) 63.7 ml/min; Est GFR (Non-African American) 54.9 ml/min
[2021-02-12 06:34] LABS: Albumin Globulin Ratio 0.8 (0.9-2); Bilirubin,Total 0.4 mg/dl (0.2-1); Globulin 3.7 gm/dl (2.5-4.0); Total Protein 6.6 gm/dl (6.4-8.2)
[2021-02-12] MEDS: GABAPENTIN 600 MG TAB PO SCH ×3 (07:43→19:48)
[2021-02-12] MEDS: dexAMETHasone 6 MG in SYRINGE 0 ML IV SCH (07:43)
[2021-02-12] MEDS: FLUoxetine HCL 20 MG CAP PO SCH (07:44)
[2021-02-12] MEDS: METOPROLOL SUCC 50MG EXT REL TAB PO SCH (07:44)
[2021-02-12] MEDS: LOSARTAN POTASSIUM 50 MG TAB PO SCH (07:44)
[2021-02-12] MEDS: CHOLECALCIFEROL 1,000 UNITS 25 MCG TAB PO SCH (07:44)
[2021-02-12] MEDS: LANSOPRAZOLE 30 MG SOLTAB PO SCH (07:44)
[2021-02-12] MEDS: FOLIC ACID 1 MG TAB PO SCH (07:44)
[2021-02-12] MEDS: CYANOCOBALAMIN (B-12) 500 MCG TABLET PO SCH (07:44)
[2021-02-12] MEDS: ASPIRIN 81 MG ECTAB PO SCH (07:44)
[2021-02-12] MEDS: DICLOFENAC SOD 1% GEL 100 GM TUBE EXT SCH ×2 (07:45→19:48)
--- NOTE | 2021-02-12 15:02 | Hospitalist Progress Note ---
Date of Service February 12, 2021 Assessment & Plan (1) Acute respiratory failure with hypoxia: resolved with treatment. (2) COVID-19: Hypoxia and symptoms improved with dexamethasone 6mg daily, one dose of remdesivir (stopped secondary to resolution of hypoxia and symptoms), and one dose of lasix 10mg IV. She is doing well today. Will order two step assessment in am and if still doing well will plan for dc to home around lunchtime. Still fatigued and she may continue convalescing at home. (3) HTN (hypertension): At goal, Continue losartan, Toprol per home regimen. (4) CKD (chronic kidney disease), stage III: Kidney function at baseline. Continue to monitor with daily BMP (5) Chronic systolic heart failure: Appears compensated. No evidence of volume overload on CXR or clinically. Not on home diuretics TTE from 2009 with EF: 40-45% (6) Coronary artery disease: chronic, stable. Cont medical management with aspirin, metoprolol, losartan per home regimen. (7) Chronic back pain: chronic narcotic use. Cont Dilaudid 4mg QID and gabapentin 600mg PO tID per home regimen. (8) Depression: likely related to chronic pain and narcotic therapy. Cont fluoxetine per home regimen. (9) DVT prophylaxis: Lovenox-patient declined Full Code Dispo-transfer to med/surg. Likely dc to home in am. Two step in am. Soco Patino DO [facility] Hospitalist Admission and Anticipated Discharge Date Admission Date: February 11, 2021 Subjective 85 yo F with covid pneumonia doing well today. She is breathing on room air and moving without significant issues with exertion. No conversational dyspnea when speaking. She is oriented, lives alone and became sick through a friend contact. She has a dog she cares for very much at home who is being cared for by her friend. She denies any chest pain, SOB, cough, SARAH, GI symptoms, or other issues today. She states she just started eating yesterday and is doing fine with food intake. Review of Systems Review of Systems: All systems reviewed & are unremarkable except as noted in Subjective Physical Exam Physical Exam: CONSTITUTIONAL: WNWD, vitals as above, generally well- appearing EYES: normal conjunctivae, no scleral icterus ENT: external ear and nose normal, MMM RESPIRATORY: clear to auscultation bilaterally, no crackles, rales or wheezes, normal respiratory effort CARDIOVASCULAR: regular rate and rhythm, S1 and 2 heard without murmurs, gallops or rubs, no JVD, no peripheral edema GASTROINTESTINAL: soft, nontender, nondistended, no guarding MUSCULOSKELETAL: strength 5/5 throughout, head is normocephalic and atraumatic, neck supple, normal palpation of chest wall without tenderness SKIN: warm and dry NEUROLOGIC: CN 2-12 grossly intact, no sensory deficit, normal cognition, normal speech, no tremor PSYCHIATRIC: alert cooperative and oriented to person, place and time. Results & Data Results & Data ([facility]) Vital Signs (Past 12 Hours) Vital Signs Temp Pulse Pulse Resp BP Pulse Ox 02/12/21 11:00 37.1 C 63 18 169/62 H 94 02/12/21 08:40 67 02/12/21 07:54 36.3 C L 67 19 133/67 94 02/12/21 03:34 37 C 61 18 155/71 H 95 Laboratory Results Short CBC 02/12/21 Range/Units 05:35 WBC 2.11 L (4.8-10.8) K/uL Hgb 10.3 L (12.0-16.0) g/dL Hct 31.6 L (37-47) % Plt Count 168 (130-400) K/uL BMP 02/12/21 05:35 Sodium 133 L Potassium 4.0 Chloride 99 Carbon Dioxide 26 BUN 18 Creatinine 0.94 Glucose 94 Calcium 8.0 L Liver Function 02/12/21 Range/Units 05:35 Total Bilirubin 0.4 (0.2-1) mg/dl AST 30 (15-37) U/L ALT 16 (12-78) U/L Alkaline Phosphatase 43 L (45-117) U/L Albumin 2.9 L (3.4-5.0) gm/dl Medications Administered Current Inpatient Medications Acetaminophen (Acetaminophen 325 Mg Tab) 650 mg PO Q4H PRN PRN Reason: Pain or Fever Stop: 03/13/21 15:16 Artificial Tears (Artificial Tears) 1 drops OP BID PRN PRN Reason: Dry Eye(S) Stop: 03/13/21 15:38 Aspirin (Aspirin 81 Mg Ectab) 81 mg PO DAILY JENA Stop: 03/14/21 08:59 Last Admin: 02/12/21 07:44 Dose: 81 mg Documented by: Cyanocobalamin (Cyanocobalamin 500 Mcg Tablet (Vitamin B-12)) 1,000 mcg PO DAILY JENA Stop: 03/14/21 08:59 Last Admin: 02/12/21 07:44 Dose: 1,000 mcg Documented by: Diclofenac Sodium (Diclofenac Sod 1% Gel 100 Gm Tube) 2 gm EXT BID JENA Stop: 03/13/21 20:59 Last Admin: 02/12/21 07:45 Dose: 2 gm Documented by: Enoxaparin Sodium (Enoxaparin Inj 40 Mg/0.4 Ml Syr) 40 mg SQ Q12H JENA Stop: 03/14/21 03:59 Last Admin: 02/12/21 03:49 Dose: 40 mg Documented by: Fluoxetine HCl (Fluoxetine Hcl 20 Mg Cap) 20 mg PO DAILY JENA Stop: 03/14/21 08:59 Last Admin: 02/12/21 07:44 Dose: 20 mg Documented by: Folic Acid (Folic Acid 1 Mg Tab) 1 mg PO DAILY JENA Stop: 03/14/21 08:59 Last Admin: 02/12/21 07:44 Dose: 1 mg Documented by: Gabapentin (Gabapentin 600 Mg Tab) 600 mg PO TID JENA Stop: 03/13/21 16:04 Last Admin: 02/12/21 14:16 Dose: 600 mg Documented by: Guaifenesin (Guaifenesin Sugar Free 100 Mg/5 Ml Udc) 200 mg PO TID PRN PRN Reason: Cough Stop: 03/13/21 15:38 Hydromorphone HCl (Hydromorphone Hcl 2 Mg Tab) 4 mg PO Q6H PRN PRN Reason: Pain Stop: 02/25/21 16:02 Last Admin: 02/12/21 09:52 Dose: 4 mg Documented by: Dexamethasone 6 mg/ Syringe 1.5 mls @ 1 mls/min IV DAILY JENA Stop: 02/20/21 09:02 Last Admin: 02/12/21 07:43 Dose: 1 mls/min Documented by: Lansoprazole (Lansoprazole 30 Mg Soltab) 30 mg PO DAILY JENA Stop: 03/14/21 08:59 Last Admin: 02/12/21 07:44 Dose: 30 mg Documented by: Latanoprost (Latanoprost 0.005% Op Soln 2.5 Ml Btl) 1 drops OPR HS JENA Stop: 03/13/21 20:59 Last Admin: 02/11/21 21:17 Dose: 1 drops Documented by: Losartan Potassium (Losartan Potassium 50 Mg Tab) 50 mg PO DAILY JENA Stop: 03/14/21 08:59 Last Admin: 02/12/21 07:44 Dose: 50 mg Documented by: Metoprolol Succinate (Metoprolol Succ 50mg Ext Rel Tab) 50 mg PO DAILY JENA Stop: 03/14/21 08:59 Last Admin: 02/12/21 07:44 Dose: 50 mg Documented by: Nitroglycerin (Nitroglycerin Sl 0.4 Mg/Tab Tab) 0.4 mg SL UD PRN PRN Reason: Chest Pain Stop: 03/13/21 15:38 Ondansetron HCl (Ondansetron Inj 2 Mg/Ml 2 Ml Vial) 4 mg IV Q6H PRN PRN Reason: Nausea Stop: 03/13/21 15:16 Polyethylene Glycol (Polyethylene (Miralax) 17 Gm Pack) 17 gm PO DAILY PRN PRN Reason: Constipation Stop: 03/13/21 15:16 Vitamin D (Cholecalciferol 1,000 Units 25 Mcg Tab) 1,000 units PO DAILY JENA Stop: 03/14/21 08:59 Last Admin: 02/12/21 07:44 Dose: 1,000 units Documented by:
[2021-02-12] MEDS: LATANOPROST 0.005% OP SOLN 2.5 ML BTL OPR SCH (19:49)
[2021-02-12] MEDS ORDERED: REMDESIVIR 100 MG in SODIUM CHLORIDE 0.9% 230 ML IV SCH (20:00)
[2021-02-12] MEDS ORDERED: SODIUM CHLORIDE 0.9% 10ML FLUSH IV SCH (21:00)
[2021-02-13] MEDS: HYDROmorphone HCL 2 MG TAB PO PRN ×3 (00:45→12:17)
[2021-02-13] MEDS: ENOXAPARIN INJ 40 MG/0.4 ML SYR SQ SCH ×3 (05:42→15:23)
[2021-02-13 06:59] LABS: Hematocrit (blood only) 31.8 % (37-47); Hemoglobin 10.6 g/dL (12.0-16.0); Mean Corpuscular Hemoglobin 26.7 pg (25-34); Mean Corpuscular Hgb Conc 33.3 g/dL (32-36); Mean Corpuscular Volume 80.1 fL (80-100); Mean Platelet Volume 9.3 fL (7.4-10.4); Platelet Count 224 K/uL (130-400); RDW Coefficient of Variation 14.9 % (11.5-14.5); RDW Standard Deviation 43.7 fL (36.4-46.3); Red Blood Count 3.97 M/uL (4.2-5.4); White Blood Count 4.55 K/uL (4.8-10.8)
[2021-02-13 07:25] LABS: BUN Creatinine Ratio 26.2 (10-20); C Reactive Protein 6.46 mg/dl (0-0.29); Calcium 8.7 mg/dl (8.5-10.1); Creatinine Clr Calc Pharmacy 42.8 ml/min; Est GFR (African American) 64.5 ml/min; Est GFR (Non-African American) 55.6 ml/min; Magnesium 1.8 mg/dl (1.8-2.4); Potassium 3.5 mmol/L (3.5-5.1)
[2021-02-13] MEDS: CHOLECALCIFEROL 1,000 UNITS 25 MCG TAB PO SCH (08:12)
[2021-02-13] MEDS: GABAPENTIN 600 MG TAB PO SCH ×2 (08:12→14:28)
[2021-02-13] MEDS: FOLIC ACID 1 MG TAB PO SCH (08:20)
[2021-02-13] MEDS: METOPROLOL SUCC 50MG EXT REL TAB PO SCH (08:20)
[2021-02-13] MEDS: dexAMETHasone 6 MG in SYRINGE 0 ML IV SCH (08:20)
[2021-02-13] MEDS: LANSOPRAZOLE 30 MG SOLTAB PO SCH (08:21)
[2021-02-13] MEDS: ASPIRIN 81 MG ECTAB PO SCH (08:21)
[2021-02-13] MEDS: CYANOCOBALAMIN (B-12) 500 MCG TABLET PO SCH (08:21)
[2021-02-13] MEDS: FLUoxetine HCL 20 MG CAP PO SCH (08:21)
[2021-02-13] MEDS: LOSARTAN POTASSIUM 50 MG TAB PO SCH (08:22)
[2021-02-13] MEDS: DICLOFENAC SOD 1% GEL 100 GM TUBE EXT SCH (08:23)
[2021-02-13] MEDS ORDERED: ASCORBIC ACID 500 MG TAB PO SCH (09:00)
[2021-02-13] MEDS ORDERED: CHOLECALCIFEROL 1,000 UNITS 25 MCG TAB PO SCH (09:00)
[2021-02-13] MEDS ORDERED: ZINC SULFATE 220 MG CAPSULE PO SCH (09:00)
--- NOTE | 2021-02-13 12:53 | Discharge Summary ---
Date of Service February 13, 2021 Admission HPI Per Admitting Provider This is an 85yo F with a PMH of CAD (s/p stent), systolic heart failure, HTN, CKD III, depression, chronic back pain and other medical problems listed below who presents with rhinorrhea and fatigue x3 days. Care provider has been symptomatic for past week with nasal congestion and rhinorrhea and just tested positive for Covid earlier today. Patient came to ED for further evaluation and testing. Endorses rhinorrhea over the past few days as well as some congestion and malaise. Denies fever, chills, chest pain or shortness of breath. No wheezing. Endorses some nausea and one episode of vomiting a few days ago that has not recurred. No abdominal pain. Some dysuria. No diarrhea or constipation. Patient lives alone and receives some help with ADLs from care provider. Admission Exam Per Admitting Provider She is sitting up in bed, in no acute distress, denies any significant dyspnea. Overall seems comfortable, but says that she has some abdominal discomfort and feeling nauseous. Denies chest pain. She is able to answer most questions appropriately. Heart sounds regular. Lung sounds with very mild diffuse rhonchi, no wheezing or crackles. Abdomen soft, nontender nondistended. No lower extremity edema noted, patient moves extremities spontaneously and without difficulty. Principal Diagnosis Acute respiratory failure with hypoxia COVID-19 infection Discharge Exam CONSTITUTIONAL: WNWD, generally well-appearing EYES: normal conjunctivae, no scleral icterus ENT: external ear and nose normal, MMM RESPIRATORY: clear to auscultation bilaterally, no crackles, rales or wheezes, normal respiratory effort CARDIOVASCULAR: regular rate and rhythm, S1 and 2 heard without murmurs, gallops or rubs, no JVD, no peripheral edema GASTROINTESTINAL: soft, nontender, nondistended, no guarding MUSCULOSKELETAL: strength 5/5 throughout, head is normocephalic and atraumatic, neck supple, normal palpation of chest wall without tenderness SKIN: warm and dry NEUROLOGIC: CN 2-12 grossly intact, no sensory deficit, normal cognition, normal speech, no tremor PSYCHIATRIC: alert cooperative and oriented to person, place and time. Discharge Data Allergies Allergy/AdvReac Type Severity Reaction Status Date / Time morphine Allergy Intermediate itching Unverified 02/11/21 11:53 sulfamethoxazole AdvReac Severe Hallucinati Verified 02/11/21 11:53 [From Bactrim] ng trimethoprim [From Bactrim] AdvReac Severe Hallucinati Verified 02/11/21 11:53 ng atenolol AdvReac Intermediate Nausea Verified 02/11/21 11:53 citalopram AdvReac Intermediate NAUSEA,SARAH, Verified 02/11/21 11:53 AGITATION diclofenac AdvReac Intermediate Nausea Verified 02/11/21 11:53 simvastatin AdvReac Intermediate Muscle Pain Verified 02/11/21 11:53 chlorpromazine AdvReac Unknown "OPPOSITE Unverified 02/11/21 11:53 EFFECT OF WHAT IT WAS SUPPOSED TO DO" pantoprazole AdvReac Diarrhea Verified 02/11/21 11:53 Consultations 02/11/21 13:57 ED Decision to Admit Stat Hospital Course (1) Acute respiratory failure with hypoxia: 2evolcing covid-19 infection. resolved with treatment. (2) COVID-19: No evidence of pneumonia on CXR performed 02/11. Hypoxia and symptoms improved with dexamethasone 6mg daily, one dose of remdesivir (stopped secondary to resolution of hypoxia and symptoms), and one dose of lasix 10mg IV. She improved clinically after 4 hours. Two step assessment performed prior to discharge home and no oxygen required with ambulation. Main symptom at discharge was fatigue as expected from known covid-19 syndrome and she was stable to continue to convalesce at home. Renal function remained at baseline throughout her hospital stay. (3) Chronic systolic heart failure: Appears compensated. No evidence of volume overload on CXR or clinically. Not on home diuretics TTE from 2009 with EF: 40-45% (4) Coronary artery disease: chronic, stable. Cont medical management with aspirin, metoprolol, losartan per home regimen. (5) Chronic back pain: chronic narcotic use. Cont Dilaudid 4mg QID and gabapentin 600mg PO tID per home regimen. No changes made to her regimen. (6) Depression: likely related to chronic pain and narcotic therapy. Cont fluoxetine per home regimen. At time of discharge she was mentating normally and was ambulating at baseline. She was hemodynamically stable and afebrile and oxygenating well on room air. She was tolerating PO without issue. She was sent home in stable condition with close PCP folow up recommended. Total Time Total Time Spent Total Time Spent (In Minutes): 60 Total Time Includes: Examination of the Patient, Discharge Planning, Medication Reconciliation and Communication With Other Providers Discharge Plan Discharge Items Patient Disposition: Home - Self-Care Reason For Visit: ACUTE HYPOXIA, COVID Discharge Diagnosis: Acute respiratory failure with hypoxia COVID-19 infection Condition on Discharge: Good Activity: Resume your previous activity Non-emergency contact: Primary Care Provider Call non-emergency contact if: you have any medication questions, your symptoms worsen and you have a fever Follow-up/Referrals: Corinna Worthy MD [Primary Care Provider] - (Date & Time 02/17/2021 12:40 PM Provider Corinna Worthy MD Department Family Medicine [facility] PLEASE NOTE THAT THIS IS A TELEPHONE APPOINTMENT. YOUR PHYSCIAN WILL CALL YOU AT THE APPOINTMENT TIME. IF YOU HAVE ANY QUESTIONS REGARDING THIS APPOINTMENT, PLEASE CALL ) Diet: Heart Healthy Addtl Attending Provider Instructions: Please take all medications as instructed on discharge list below. Please observe home isolation for at least 10 days after initial symptom onset. Please do not return off home isolation after Covid infection unless you are fever free for at least 24 hours. For more information please visit www.cdc.gov/coronavirus. Please continue to wear a mask in public places and wear appropriate and observe social distancing rules. Please discuss with your primary care physician the appropriate opportunity for you to receive a COVID-19 vaccination. It is recommended that you follow-up with your primary care doctor within 1 week of discharge from the hospital to ensure you are still doing well after returning home. It was a pleasure taking care of you! Please call if you have any questions or problems. You can reach a [facility] hospitalist on duty at [facility] 24 hours a day by calling [phone]. Take care of yourself. Soco Patino, DO [facility] Hospitalist Pending Studies at Discharge: No Stand-Alone Forms: My [facility] Medications and DC Order Prescriptions: Continued latanoprost [Xalatan] 0.005 % drops 1 drp OPR HS RF: 0 gabapentin [Neurontin] 600 mg tablet 600 mg PO TID RF: 0 metoprolol succinate [Toprol XL] 50 mg tablet extended release 24 hr 50 mg PO DAILY RF: 0 cyanocobalamin (vitamin B-12) [Vitamin B-12] 1,000 mcg Tablet 1,000 mcg PO DAILY RF: 0 hydrocortisone 2.5 % Lotion 1 applic TOPICAL TID PRN (Reason: Itching) RF: 0 nitroglycerin [Nitrostat] 0.4 mg tablet, sublingual 0.4 mg sublingual UD PRN (Reason: Chest Pain) RF: 0 folic acid 1 mg Tablet 1 mg PO DAILY RF: 0 fluoxetine [Prozac] 20 mg capsule 20 mg PO DAILY RF: 0 cholecalciferol (vitamin D3) [Vitamin D3] 1,000 unit Capsule 1,000 unit PO DAILY RF: 0 Systane (PF) 0.4-0.3 % Dropperette 1 drp OPL BID PRN (Reason: Dry Eye(S)) RF: 0 guaifenesin 100 mg/5 mL Liquid 200 mg PO TID PRN (Reason: Cough) RF: 0 losartan 50 mg tablet 50 mg PO DAILY RF: 0 lansoprazole 30 mg capsule,delayed release(DR/EC) 30 mg PO DAILY RF: 0 hydromorphone 4 mg tablet 4 mg PO Q6H RF: 0 aspirin 81 mg Tablet,Delayed Release (Dr/Ec) 81 mg PO DAILY RF: 0 diclofenac sodium 1 % Gel 2 g TOPICAL BID RF: 0 Discharge Orders: Discharge Order (Routine); Ordered 02/13/21 Ordered By: Soco Patino Admission Data Admit Date/Time: 02/11/21 14:08 Attending Provider: Soco Patino Admit Provider: Lucho Elizalde Primary Care Provider: Corinna Worthy Other Interventions: Discharge Summary Assessment (RN) Last Done: 02/13/21 14:14
== END 2021-02-13 17:17 | disposition home or self-care (01) ==
LOC: ED 11:05 → INTOOBSV 14:08 → SUATTDRO 14:08 → 2S 14:08